=== PATIENT | female | born 1955 | race Caucasian/White ===

== ENCOUNTER 2017-04-19 02:43 | Emergency (ER) | payer MEDICARE ==
[~2017-04-19] VITALS: Ht 162.6 cm; Wt 61.2 kg
[~2017-04-19 02:43] MED LIST: ACET325; ACET325 PO; ALBU90OI INH; ALPR1; AMLO10 PO; AMLO5 PO; ASCO500 PO; BUPR150ER PO; BUPR75; BUSP10 PO; Bacid1 EACH PO; Bactrim Ds Tab1 EACH PO; Bupropion Xl150 MG PO; CALCA500CH PO; CALCAVITD PO; CARI350 PO; CEPH500 PO; CIPRO500 MG PO; CITA20 PO; CLIN150 PO; CLON2 PO; CYCL10 PO; Celexa40 MG PO; Cipro500 MG PO; DESV50 PO; DIPH50 PO; DOCU100 PO; ERGO400 PO; FAMO20 PO; FURO80 PO; GABA300 PO; HYDACE5; HYDACE5 PO; Hydrocodone-Ap1 EA23 PO; LAVAP17G PO; LEVFLO500 PO; LEVO750 PO; LEVSOD88 PO; LIPOZENE; LISI5; METR500 PO; Melatonin5 M1 PO; Mucinex600 MG PO; OXYACE5T PO; OXYC10ER PO; OXYC15ER PO; Omeprazole20 M1 PO; PROACE100 PO; PROBIOTIC WITH1 EACH PO; Prednisone20 MG PO; Pyridium100 MG PO; SERT25; SOMA250 MG PO; TRAM50 PO; Verotin-Gr Cap1 EACH PO; WARF1 PO; ZESTORETIC 20-121 EA PO; Zithromax250 MG PO; Zofran4 MG PO
== END 2017-04-19 05:50 | disposition home or self-care (01) ==
LOC: ER 02:43
DX: T21.12XA Burn of first degree of abdominal wall, initial encounter (principal); S30.810A Abrasion of lower back and pelvis, initial encounter; T31.0 Burns involving less than 10% of body surface; F17.200 Nicotine dependence, unspecified, uncomplicated; Z90.710 Acquired absence of both cervix and uterus; Z88.0 Allergy status to penicillin; Z88.6 Allergy status to analgesic agent; Z88.8 Allergy status to other drugs, medicaments and biological substances; Z88.1 Allergy status to other antibiotic agents; Z79.899 Other long term (current) drug therapy; X08.8XXA Exposure to other specified smoke, fire and flames, initial encounter
CPT/HCPCS: 99282

== ENCOUNTER → 2017-06-04 | Outpatient (CLI) | payer MEDICARE ==
[~2017-06-04] MED LIST changes: +CEFU500T30 PO
[2017-06-06 22:07] LABS: Alpha Hyrdroxyalprazolam Not Detected (NOTDET); Alpha hydroxytriazolam Not Detected (NOTDET); Alprazolam Not Detected (NOTDET); Confirm Clonazepam LC/MS Not Detected (NOTDET); Confirm Flunitrazepam LC/MS Not Detected (NOTDET); Diazepam Not Detected (NOTDET); Flurazepam Not Detected (NOTDET); Lorazepam Not Detected (NOTDET); Midazolam Not Detected (NOTDET); Temazepam Not Detected (NOTDET)
[2017-06-07 11:19] LABS: Codeine Not Detected (NOTDET); Hydrocodone Not Detected (NOTDET); Hydromorphone Not Detected (NOTDET); Morphine Not Detected (NOTDET); Norhydrocodone 99 ng/mL (NOTDET); Noroxycodone Not Detected (NOTDET)
== END | disposition home or self-care (01) ==
LOC: LAB SRC 14:10
PROVIDERS: Physician Assistant
DX: M50.30 Other cervical disc degeneration, unspecified cervical region (principal); F41.8 Other specified anxiety disorders; Z79.899 Other long term (current) drug therapy
CPT/HCPCS: G0480

== ENCOUNTER → 2017-10-07 | Outpatient (CLI) | payer MEDICARE ==
[~2017-10-07] MED LIST changes: -CEFU500T30 PO
== END | disposition home or self-care (01) ==
LOC: LAB SRC 14:27 → LAB SHORT 14:27
DX: G89.29 Other chronic pain (principal); Z79.899 Other long term (current) drug therapy
CPT/HCPCS: G0480

== ENCOUNTER 2017-11-24 20:53 | Inpatient (IN) | payer MEDICARE ==
[~2017-11-24] VITALS: Ht 167.6 cm; Wt 72.5 kg
[2017-11-24 21:10] LABS: BASOPHILS ABSOLUTE AUTO 0.05 K/mm3 (0.00-0.23); BASOPHILS PERCENT AUTO 1 % (0-2); EOSINOPHILS PERCENT AUTO 6 % (0-6); Hematocrit 37.8 % (33.0-51.0); Hemoglobin 11.9 g/dL (11.5-16.0); IMMATURE GRAN ABSOLUTE AUTO 0.07 K/mm3 (0.00-0.10); IMMATURE GRAN PERCENT AUTO 1 % (0-1); LYMPHOCYTES ABSOLUTE AUTO 2.84 K/mm3 (0.84-5.20); LYMPHOCYTES PERCENT AUTO 34 % (21-46); MONOCYTES ABSOLUTE AUTO 0.39 K/mm3 (0.16-1.47); MONOCYTES PERCENT AUTO 5 % (4-13); Mean Corpuscular HGB 29.5 pg (26.0-34.0); Mean Corpuscular HGB Conc 31.5 g/dL (31.5-36.5); Mean Corpuscular Volume 94 fL (80-100); Mean Platelet Volume 10.1 fL (9.1-12.4); NEUTROPHILS ABSOLUTE AUTO 4.58 K/mm3 (1.96-9.15); NEUTROPHILS PERCENT AUTO 54 % (41-73); Platelet Count 278 K/mm3 (150-400); RDW Coefficient Variation 12.4 % (11.7-14.2); Red Blood Cell Count 4.03 M/mm3 (3.80-5.20); White Blood Cell Count 8.43 K/mm3 (4.00-11.30)
[2017-11-24 21:24] LABS: International Normalized Ratio 0.98; Prothrombin Time Results 10.1 Sec (9.7-11.5)
[2017-11-24 21:26] LABS: Troponin I <0.015 ng/mL (0.000-0.040)
[2017-11-24 21:45] LABS: Alanine Aminotransfer (ALT/SGP 62 U/L (12-78); Albumin, Blood 3.1 g/dL (3.4-5.0); Albumin/Globulin Ratio 0.9 (0.8-1.8); Alk Phos 131 U/L (50-136); Anion Gap 9 mmol/L (6-16); Aspartate Aminotrans (AST/SGOT 57 U/L (12-37); Bilirubin, Total <0.1 mg/dL (0.1-1.0); Blood Urea Nitrogen 18 mg/dL (8-24); CO2, Blood 24 mmol/L (21-32); Calcium, Blood 8.3 mg/dL (8.5-10.1); Chloride, Blood 107 mmol/L (98-108); Globulin, Blood 3.5 g/dL (2.2-4.0); Glomerular Filtration Rate 48 (60-); Glucose, Blood 323 mg/dL (70-99); Sodium, Blood 140 mmol/L (136-145); Total Protein, Blood 6.6 g/dL (6.4-8.2)
[2017-11-25 01:52] LABS: PCO2 Arterial 37.5 mmHg (35-45); PO2 Arterial 104 mmHg (80-100); pH Blood Arterial 7.41 (7.35-7.45)
[2017-11-25 02:21] LABS: U Amphetamine Screen DETECTED; U Barbituate Screen Not Detected; U Benzodiazapine Screen Not Detected; U Buprenorphine Screen Not Detected; U Cannabinoids Screen DETECTED; U Cocaine Screen Not Detected; U Methadone Screen Not Detected; U Methamphetamine Screen DETECTED; U Opiates Screen Not Detected; U Oxycodone Screen Not Detected; U Phencyclidine Screen Not Detected; U Propoxyphene Screen Not Detected
[2017-11-25 09:28] LABS: Source, Urine Catheter
[2017-11-25 09:47] LABS: Appearance, Urine Clear (Clear); Bilirubin, Urine Neg (Neg); Blood, Urine 1+ (Neg); Color, Urine Yellow (P-Yellow); Glucose Qualitative, Urine Neg (Neg); Ketones, Urine Neg (Neg); Leukocyte Esterase, Urine 1+ (Neg); Nitrite, Urine Neg (Neg); Protein, Urine 1+ (Neg); Specific Gravity, Urine 1.015 (1.003-1.022); Urobilinogen, Urine NORM (Normal)
[2017-11-25 09:49] LABS: Bacteria Rare /hpf; Red Blood Cells, Urine 0-2 /hpf (0-2)
[2017-11-25 09:50] LABS: Squamous Epithelial Cells Rare /hpf (Few)
[2017-11-26 04:02] LABS: Hematocrit 33.3 % (33.0-51.0); Hemoglobin 10.6 g/dL (11.5-16.0); Mean Corpuscular HGB 28.7 pg (26.0-34.0); Mean Corpuscular HGB Conc 31.8 g/dL (31.5-36.5); Mean Platelet Volume 10.5 fL (9.1-12.4); Platelet Count 212 K/mm3 (150-400); RDW Coefficient Variation 12.8 % (11.7-14.2); RDW Standard Deviation 42.1 fL (35.1-46.3); Red Blood Cell Count 3.69 M/mm3 (3.80-5.20); White Blood Cell Count 7.51 K/mm3 (4.00-11.30)
[2017-11-26 04:04] LABS: Mean Corpuscular Volume 90 fL (80-100)
[2017-11-26 04:32] LABS: Albumin, Blood 2.5 g/dL (3.4-5.0); Albumin/Globulin Ratio 0.8 (0.8-1.8); Bilirubin, Total 0.4 mg/dL (0.1-1.0); Bun/Creatinine Ratio 11.3 (12.0-20.0); Calcium, Blood 7.7 mg/dL (8.5-10.1); Creatinine, Blood 1.15 mg/dL (0.40-1.00); Globulin, Blood 3.1 g/dL (2.2-4.0); Magnesium, Blood 2.1 mg/dL (1.6-2.4); Phosphorus, Blood 3.7 mg/dL (2.5-4.9); Potassium, Blood 4.2 mmol/L (3.5-5.5); Total Protein, Blood 5.6 g/dL (6.4-8.2)
[2017-11-26 04:42] LABS: PCO2 Arterial 37.4 mmHg (35-45); PO2 Arterial 61.9 mmHg (80-100); pH Blood Arterial 7.39 (7.35-7.45)
[2017-11-27 03:50] LABS: PCO2 Arterial 35.1 mmHg (35-45); PO2 Arterial 61.3 mmHg (80-100); pH Blood Arterial 7.42 (7.35-7.45)
[2017-11-27 05:18] LABS: BASOPHILS ABSOLUTE AUTO 0.05 K/mm3 (0.00-0.23); BASOPHILS PERCENT AUTO 1 % (0-2); EOSINOPHILS ABSOLUTE AUTO 0.37 K/mm3 (0.00-0.68); EOSINOPHILS PERCENT AUTO 5 % (0-6); Hematocrit 38.4 % (33.0-51.0); Hemoglobin 12.6 g/dL (11.5-16.0); IMMATURE GRAN ABSOLUTE AUTO 0.04 K/mm3 (0.00-0.10); IMMATURE GRAN PERCENT AUTO 1 % (0-1); LYMPHOCYTES ABSOLUTE AUTO 1.06 K/mm3 (0.84-5.20); LYMPHOCYTES PERCENT AUTO 15 % (21-46); MONOCYTES ABSOLUTE AUTO 0.36 K/mm3 (0.16-1.47); MONOCYTES PERCENT AUTO 5 % (4-13); Mean Corpuscular HGB 28.8 pg (26.0-34.0); Mean Corpuscular HGB Conc 32.8 g/dL (31.5-36.5); Mean Corpuscular Volume 88 fL (80-100); NEUTROPHILS ABSOLUTE AUTO 5.17 K/mm3 (1.96-9.15); NEUTROPHILS PERCENT AUTO 73 % (41-73); Platelet Count 261 K/mm3 (150-400); Red Blood Cell Count 4.38 M/mm3 (3.80-5.20); White Blood Cell Count 7.05 K/mm3 (4.00-11.30)
[2017-11-27 05:56] LABS: Bun/Creatinine Ratio 10.4 (12.0-20.0); Calcium, Blood 8.3 mg/dL (8.5-10.1); Creatinine, Blood 1.06 mg/dL (0.40-1.00); Potassium, Blood 4.1 mmol/L (3.5-5.5)
[2017-11-27] MEDS ORDERED: CEFU500T30 PO (11:26)
== END 2017-11-27 12:40 | disposition home or self-care (01) | DRG 208 ==
LOC: ER 20:53 → ICUE 11-25 00:08 → ICUW 11-25 00:08 → ICUE 11-25 00:19
PROVIDERS: Emergency Medicine; Internal Medicine; Internal Medicine Critical Care Medicine
PROC: 5A1945Z Respiratory Ventilation, 24-96 Consecutive Hours (ICD-10-PCS; principal; 2017-11-25)
DX: J96.01 Acute respiratory failure with hypoxia (principal); J69.0 Pneumonitis due to inhalation of food and vomit; G92 Toxic encephalopathy; M79.7 Fibromyalgia; M06.9 Rheumatoid arthritis, unspecified; J44.9 Chronic obstructive pulmonary disease, unspecified; I10 Essential (primary) hypertension; L93.0 Discoid lupus erythematosus; R73.9 Hyperglycemia, unspecified; F17.210 Nicotine dependence, cigarettes, uncomplicated; F15.90 Other stimulant use, unspecified, uncomplicated; F12.90 Cannabis use, unspecified, uncomplicated; F32.9 Major depressive disorder, single episode, unspecified
CPT/HCPCS: 31720; 36415; 36600; 51702; 70450; 71045; 71260; 80048; 80053; 81001; 82330; 82803; 82947; 83036; 83735; 84100; 84484; 85025; 85027; 85610; 85730; 87040; 87070; 87086; 87205; 93005; 93010; 93306; 94002; 94003; 94640; 94667; 96360; 99291-25; 99292; C9113; J0360; J0696; J1650; J2060; J3010; J3480; J7030; Q9967

== ENCOUNTER 2018-09-01 11:56 | Day surgery (SDC) | payer MEDICARE, OTHER ==
[~2018-09-01 11:56] MED LIST changes: +CEFU500T30 PO
--- NOTE | 2018-09-01 12:15 | NUR ---
09/01/[address] AWARE OF PT PREP OUTCOME. PT IN RESTROOM DOING HER SECOND ENEMA AT THIS TIME PER
== END 2018-09-01 12:31 | disposition home or self-care (01) ==
LOC: ORSCSDS 11:56
DX: Z12.11 Encounter for screening for malignant neoplasm of colon (principal); Z53.9 Procedure and treatment not carried out, unspecified reason
CPT/HCPCS: J2704; J7120

== ENCOUNTER 2018-09-10 01:30 | Inpatient (IN) | payer MEDICARE, OTHER ==
[~2018-09-10] VITALS: Ht 162.6 cm; Wt 80.3 kg
[2018-09-10 02:07] LABS: BASOPHILS ABSOLUTE AUTO 0.04 K/mm3 (0.00-0.23); BASOPHILS PERCENT AUTO 0 % (0-2); EOSINOPHILS ABSOLUTE AUTO 0.08 K/mm3 (0.00-0.68); EOSINOPHILS PERCENT AUTO 1 % (0-6); Hematocrit 31.9 % (33.0-51.0); Hemoglobin 10.2 g/dL (11.5-16.0); IMMATURE GRAN PERCENT AUTO 1 % (0-1); LYMPHOCYTES ABSOLUTE AUTO 1.51 K/mm3 (0.84-5.20); LYMPHOCYTES PERCENT AUTO 12 % (21-46); MONOCYTES ABSOLUTE AUTO 0.93 K/mm3 (0.16-1.47); MONOCYTES PERCENT AUTO 7 % (4-13); Mean Corpuscular HGB 28.5 pg (26.0-34.0); Mean Corpuscular Volume 89 fL (80-100); Mean Platelet Volume 10.3 fL (9.1-12.4); NEUTROPHILS ABSOLUTE AUTO 10.33 K/mm3 (1.96-9.15); NEUTROPHILS PERCENT AUTO 80 % (41-73); Platelet Count 271 K/mm3 (150-400); RDW Coefficient Variation 14.3 % (11.7-14.2); RDW Standard Deviation 46.1 fL (35.1-46.3); Red Blood Cell Count 3.58 M/mm3 (3.80-5.20); White Blood Cell Count 12.99 K/mm3 (4.00-11.30)
[2018-09-10 02:12] LABS: PCO2 Arterial 32.9 mmHg (35-45); PO2 Arterial 64.4 mmHg (80-100); pH Blood Arterial 7.35 (7.35-7.45)
[2018-09-10 02:21] LABS: Albumin, Blood 3.3 g/dL (3.4-5.0); Bilirubin, Total 0.4 mg/dL (0.1-1.0); Bun/Creatinine Ratio 9.1 (12.0-20.0); Creatinine, Blood 6.05 mg/dL (0.40-1.00); Globulin, Blood 3.4 g/dL (2.2-4.0); Potassium, Blood 4.4 mmol/L (3.5-5.5); Total Protein, Blood 6.7 g/dL (6.4-8.2)
[2018-09-10 02:29] LABS: Magnesium, Blood 2.5 mg/dL (1.6-2.4); Troponin I <0.015 ng/mL (0.000-0.040)
[2018-09-10 04:11] LABS: Source, Urine Clean Catch
[2018-09-10 04:18] LABS: Bilirubin, Urine Neg (Neg); Blood, Urine 2+ (Neg); Glucose Qualitative, Urine Neg (Neg); Ketones, Urine Neg (Neg); Leukocyte Esterase, Urine 1+ (Neg); Nitrite, Urine Neg (Neg); Protein, Urine 2+ (Neg); Specific Gravity, Urine 1.015 (1.003-1.022); Urobilinogen, Urine NORM (Normal)
[2018-09-10 04:19] LABS: Appearance, Urine Hazy (Clear); Color, Urine Yellow (P-Yellow)
[2018-09-10 04:24] LABS: Amorphous Mod (0-Heavy); Bacteria Mod /hpf; Red Blood Cells, Urine 0-2 /hpf (0-2); Squamous Epithelial Cells Rare /hpf (Few)
[2018-09-10 04:25] LABS: Granular Casts 0-2 /lpf (0)
[2018-09-10 04:28] LABS: U Amphetamine Screen Not Detected; U Barbituate Screen Not Detected; U Benzodiazapine Screen Not Detected; U Buprenorphine Screen DETECTED; U Cannabinoids Screen Not Detected; U Cocaine Screen Not Detected; U Methadone Screen Not Detected; U Methamphetamine Screen Not Detected; U Opiates Screen Not Detected; U Oxycodone Screen DETECTED; U Phencyclidine Screen Not Detected; U Propoxyphene Screen Not Detected
--- NOTE | 2018-09-10 06:43 | NUR ---
ASSUMING CARE AND SUMMARY NOTE. PT ARRIVED TO THE UNIT AT APPROX 0605. PT TRANSFERED VIA STRETCHER WITH ER NURSE AND BIOMASS PLANT MANAGER. PT IS ALERT AND ORIENTED AT THIS TIME. PT IS REPORTING SOB AND DIFFICULTY BREATHING. PT IS ON 2.5L O2 VIA NC WITH SPO2 IN THE MID TO HIGH 90'S. PT LUNG SOUNDS ARE WHEEZY THROUGHOUT. PT HAS GARCIA CATH IN PLACE, LARGE AMOUNT OF SEDIMENT NOTED IN GARCIA CATH TUBING. PT ASKED IF SHE HAS ANY FLANK OR LOWER BACK PAIN AND PT REPORTED THAT SHE DOES AT APPROX A 5/10. PT ALSO REPORTS GENERALIZED PAIN AND IS SHIVERY AND FIDGETY IN BED. PT TEMPERATURE IS APPROX 98.6 PT STARTED ON NS AT 200ML/HR FOR X2 BAGS. PT PROVIDED SQ HEPARIN, AND ANTIBIOTIC PIGGYBACK STARTED PER EMAR. PT BP IS IN THE 95-110'S RANGE AT THIS ITME. PT HR IS IN THE HIGH 90'S AND APPEARS SINUS. ASSUMED CARE OF PT AT THE TIME OF ARRIVAL TO THE UNIT. WILL REPORT OFF TO ONCOMING DAY SHIFT NURSE.
--- NOTE | 2018-09-10 10:13 | NUR ---
[facility] CALLED AT THIS TIME TO CONFIRM PT'S SUBOXONE PRESCRIPTION, EMPLOYEE STATES RX IS CURRENT FROM DR. SANTACRUZ AND DOSE IS SUBOXONE 8MG/2MG SL FILM BID. WILL RESUME PRESCRIPTION HERE IN HOSPITAL PER DR. DHILLON.
[2018-09-10 10:38] LABS: Bun/Creatinine Ratio 10.3 (12.0-20.0); Calcium, Blood 7.2 mg/dL (8.5-10.1); Creatinine, Blood 4.86 mg/dL (0.40-1.00); Potassium, Blood 4.5 mmol/L (3.5-5.5)
--- NOTE | 2018-09-10 11:35 | NUR ---
0730: CARE ASSUMED, ASSESSMENT COMPLETED. PT DROWSY, ROUSES EASILY TO VOICE, FOLLOWS COMMANDS, ANSWERS QUESTIONS APPROPRIATELY, FALLS BACK ASLEEP QUICKLY, SOME INTERMITTENT CONFUSION NOTED, PT STATES SHE IS "REACHING FOR THINGS THAT ARE NOT THERE," REPORTS SHE HAS BEEN CONFUSED AND FORGETFUL AT HOME FOR A FEW DAYS. VSS AT THIS TIME, MAP 70'S, HR 90'S, SPO2 >90% ON 2L/NC. NS INFUSING AT 200ML/HR PER ORDERS. PT C/O 10/10 RIGHT WRIST/HAND/FINGER PAIN, STATES SHE BELIEVES SHE MAY HAVE BEEN BITTEN BY A SPIDER. NO OBVIOUS BITE NOTED, HOWEVER THERE IS AN IV DRESSING PARTIALLY COVERING THE BACK OF HER HAND. RIGHT HAND SWOLLEN, WARM TO TOUCH, REDDENED, CMS WNL. PT ALSO C/O BILATERAL LEG PAIN/SPASMS AND NONDESCRIPT LUQ ABDOMINAL PAIN UPON PALPATION, STATES ABD PAIN IS CHRONIC, DENIES N/V. PT HAD DIARRHEA THIS MORNING, STATES SHE HAS HAD CHRONIC DIARRHEA SINCE STOPPING OXYCODONE 5 YEARS AGO. PT FALLS BACK ASLEEP DRUING CONVERSATIONS. PT ANXIOUS WHILE AWAKE, SPASM LIKE TREMORS TO ALL EXTREMS NOTED WHILE AWAKE AND ASLEEP. LS COARSE T/O, HRR. 1000: DR. DHILLON AWARE OF PT'S C/O PAIN, [facility] CONTACTED PER DR. DHILLON FOR PT'S REGULAR SUBOXONE REGIME. SUBOXONE ORDERED AT THIS TIME. PT'S SO AT BEDSIDE, ADMISSION PAPERWORK DONE. VSS. WILL ADMINISTER SUBOXONE WHEN AVAILABLE. 1130: DR. DHILLON AT BEDSIDE, MAPS <65 AT THIS TIME, NS BOLUS ADMINISTERED PER ORDERS. PT ABLE TO WAKE UP AND ANSWER QUESTIONS, THEN FALLS BACK ASLEEP. 1215: VSS AT THIS TIME, MAPS >65. LS COARSE IN BILAT BASES, HR NSR 90'S. PT REMAINS DROWSY, FALLING ASLEEP IN MID CONVERSATION. NO CHANGES NOTED IN MENTAL STATUS.
--- NOTE | 2018-09-10 13:41 | NUR ---
Frederick was alone in room and trembling. Per admit trigger, I offered prayer and emotional encouragement. She had difficulty holding conversation as she said she was in pain. Immediately informed RN. Provided prayer for healing and comfort. Frederick verbalized appreciation. Cruise Director services will remain available.
--- NOTE | 2018-09-10 14:57 | NUR ---
1400: PT SLEEPING AT THIS TIME, VSS, MAP REMAINS >65, NS INFUSING PER ORDERS. PT REMAINS DROWSY WITH PERIODS OF INTERMITTENT CONFUSION, IS AWARE THAT SHE IS CONFUSED. WHE SHE WAKES UP COMPLETELY, SHE REORIENTS EASILY. PT CALM AND COOPERATIVE WITH CARE, MUSCLE SPASMS REMAIN PRESENT WHILE AWAKE AND ASLEEP. REDNESS AND HEAT TO RIGHT HAND NO LONGER PRESENT, PAIN PERSISTS.
[2018-09-10 15:26] LABS: Albumin, Blood 2.6 g/dL (3.4-5.0); Anion Gap 10 mmol/L (6-16); Blood Urea Nitrogen 47 mg/dL (8-24); Bun/Creatinine Ratio 11.1 (12.0-20.0); CO2, Blood 17 mmol/L (21-32); Calcium, Blood 7.3 mg/dL (8.5-10.1); Chloride, Blood 113 mmol/L (98-108); Creatinine, Blood 4.25 mg/dL (0.40-1.00); Glomerular Filtration Rate 11 (60-); Glucose, Blood 123 mg/dL (70-99); Phosphorus, Blood 4.7 mg/dL (2.5-4.9); Potassium, Blood 4.5 mmol/L (3.5-5.5); Sodium, Blood 140 mmol/L (136-145)
--- NOTE | 2018-09-10 18:02 | NUR ---
1600: PT REASSESSED, LS REMAIN COARSE, RT ARRIVING SHORTLY FOR NEB TX. VSS, BP WNL. PT INSTRUCTED TO COUGH AND DEEP BREATHE, SWALLOWS SPUTUM. PT REMAINS DROWSY, INTERMITTENT CONFUSION NOTED, PT AWARE OF CONFUSION AND REORIENTS EASILY. PT FALLS BACK ASLEEP QUICKLY AFTER CARES ARE COMPLETED. 1730: PT BRUSHED TEETH AND WASHED FACE, CATH AND KATERINA CARE COMPLETED, ATTENDS CHANGED FOR SMALL BM. PT NOW SITTING UP IN BED ATTEMPTING TO EAT DINNER, REMAINS DROWSY AND IS HAVING A HARD TIME STAYING AWAKE. PT APPROPRIATE AND COOPERATIVE WHILE AWAKE. 1800: TRAY REMOVED FROM BEDSIDE TABLE PT IS SLEEPING. VSS.
--- NOTE | 2018-09-10 19:15 | NUR ---
ASSUMING CARE OF PT AT THIS TIME. PT REPORT RECEIVED AT BEDSIDE WITH OFFGOING NURSE, KEON EPPERSON. PT LAYING IN BED, SLEEPING UPON ENTERING THE ROOM. PT'S SIGNIFICANT OTHER AT BEDSIDE. VS STABLE - SEE VS FS. PT DOES NOT APPEAR TO BE IN DISTRESS AT THIS TIME. WILL REVIEW PLAN OF CARE.
--- NOTE | 2018-09-10 19:16 | NUR ---
1900: PT AWAKE, TALKING WITH SO AT THIS TIME, VSS. PT DENIES SOB AT REST, O2 AT 2.5L/NC, SPO2 >90%. LS REMAIN COARSE, OCCASIONAL LOOSE COUGH REMAINS PRESENT. REPORT GIVEN TO ONCOMING SHIFT.
--- NOTE | 2018-09-10 19:30 | NUR ---
ASSESSMENT PT CALM, QUIET, COOPERATIVE, RESPONDS TO VERBAL STIMULI, SPONT OPENS EYES, A&O X4, OCC SLOW TO RESPOND, OTHERWISE TALKS AND ANSWERS QUESTIONS APPROPRIATELY, QUICKLY FALLS BACK ASLEEP WITH DECREASED STIMULI, DROWSY, LETHARGIC. PT SLEEPING AT THIS TIME. PT STATES CHRONIC N/T ALL EXTREMETIES. PT JACOB. GENEARLIZED WEAKNESS NOTED. PT ASSISTS WITH Q2 HR TURNS. PT C/O PAIN - MEDICATED WITH PAIN MEDICATIONS PER PHYSICIAN'S ORDER / UTILIZE NONPHARM METHODS. TREMORS. LUNGS COARSE, DIMINIHSED LOWER LOBES. PT ON 2L NC. OXY SAT >95%. RR 20'S. DENIES SOB AT REST. PT C/O DYSPNEA WITH EXERTION. OCC COUGHING NOTED. PT C/O SMALL AMOUNTS OF THICK SWAIN SECRETIONS. TEMP 99.6: ROOM TEMP DECREASED, BLANKETS REMOVED, TYLENOL PRN. NSR WITH OCC PAC'S. HR 90'S. BP STABLE - SEE VS FS. STRONG PULSES. WARM, PINK SKIN. R HAND: NONPITTING EDEMA, HOT, AND TENDERNESS WITH PALPATION. PT C/O R HAND NONSITTING EDEMA, HOT, AND TENDERNESS WITH PALPATION FOR 2 YEARS. ACTIVE BT X4 QUADRANTS. ABD SOFT, NONTENDER, MILD DIST (PT STATES ABD IS NORMAL). NO N/V. NO BM. PT TOLERATING PO WATER. F/C: CLOUDLY YELLOW URINE WITH SEDIMENT. PIV X1. NS AT 75 ML/HR.
[2018-09-11 03:28] LABS: BASOPHILS ABSOLUTE AUTO 0.04 K/mm3 (0.00-0.23); BASOPHILS PERCENT AUTO 1 % (0-2); EOSINOPHILS ABSOLUTE AUTO 0.06 K/mm3 (0.00-0.68); EOSINOPHILS PERCENT AUTO 1 % (0-6); Hematocrit 27.1 % (33.0-51.0); Hemoglobin 8.6 g/dL (11.5-16.0); IMMATURE GRAN ABSOLUTE AUTO 0.02 K/mm3 (0.00-0.10); IMMATURE GRAN PERCENT AUTO 0 % (0-1); LYMPHOCYTES ABSOLUTE AUTO 1.27 K/mm3 (0.84-5.20); LYMPHOCYTES PERCENT AUTO 19 % (21-46); MONOCYTES ABSOLUTE AUTO 0.57 K/mm3 (0.16-1.47); MONOCYTES PERCENT AUTO 9 % (4-13); Mean Corpuscular HGB 29.1 pg (26.0-34.0); Mean Corpuscular HGB Conc 31.7 g/dL (31.5-36.5); Mean Platelet Volume 10.6 fL (9.1-12.4); NEUTROPHILS ABSOLUTE AUTO 4.66 K/mm3 (1.96-9.15); NEUTROPHILS PERCENT AUTO 70 % (41-73); Platelet Count 210 K/mm3 (150-400); RDW Coefficient Variation 14.6 % (11.7-14.2); RDW Standard Deviation 49.1 fL (35.1-46.3); Red Blood Cell Count 2.96 M/mm3 (3.80-5.20); White Blood Cell Count 6.62 K/mm3 (4.00-11.30)
[2018-09-11 03:29] LABS: Mean Corpuscular Volume 92 fL (80-100)
[2018-09-11 03:47] LABS: Alanine Aminotransfer (ALT/SGP 51 U/L (12-78); Albumin, Blood 2.5 g/dL (3.4-5.0); Albumin/Globulin Ratio 0.8 (0.8-1.8); Alk Phos 148 U/L (50-136); Anion Gap 9 mmol/L (6-16); Aspartate Aminotrans (AST/SGOT 42 U/L (12-37); Bilirubin, Total 0.4 mg/dL (0.1-1.0); Blood Urea Nitrogen 42 mg/dL (8-24); Bun/Creatinine Ratio 15.1 (12.0-20.0); CO2, Blood 19 mmol/L (21-32); Calcium, Blood 7.7 mg/dL (8.5-10.1); Chloride, Blood 116 mmol/L (98-108); Creatinine, Blood 2.78 mg/dL (0.40-1.00); Globulin, Blood 3.3 g/dL (2.2-4.0); Glomerular Filtration Rate 18 (60-); Glucose, Blood 104 mg/dL (70-99); Sodium, Blood 144 mmol/L (136-145); Total Protein, Blood 5.8 g/dL (6.4-8.2); Vancomycin, Random 19.4 ug/mL
--- NOTE | 2018-09-11 04:53 | NUR ---
SHIFT ASSESSMENT NO ACUTE CHANGES NOTED T/O SHIFT. PT SLEPT T/O SHIFT. PT CALM, QUIET, COOPERATIVE, RESPONDS TO VERBAL STIMULI, SPONT OPENS EYES, A&O X4, OCC SLOW TO RESPOND, OTHERWISE TALKS AND ANSWERS QUESTIOSN APPROPRIATELY, QUICKLY FALLS BACK ASLEEP WITH STIMULI, DROWSY, LETHARGIC. PT C/O CHRONIC N/T ALL EXTREMETIES. PT JACOB. GENERALIZED WEAKNESS NOTED. PT ASSISTS WITH Q2 HR TURNS. PT C/O PAIN/DISCOMFORT AT BEGINNING OF THE SHIFT. PT STATES PAIN/DISCOMFORT HAS BEEN TOLERABLE AFTER ADMINISTERING PAIN MEDICATIONS AND UTILIZING NONPHARM METHODS. TREMORS. PT STATES TREMORS ARE CHRONIC. LUNGS COARSE, DIMINISHED LOWER LOBES. TITRATE TO RA. OXY SAT 90% AND GREATER T/O SHIFT. RR 15 TO 20'S. DENIES SOB AT REST. PT C/O DYSPNEA WITH EXERTION. OCC COUGHING. PT C/O SMALL AMOUNTS OF THICK SWAIN SECRETIONS. TMAX 99.6. TEMP RESOLVED AFTER DECREASING ROOM TEMP, REMOVING BLANKETS, AND TYLENOL PRN. NSR TO ST WITH OCC PAC'S. HR 80['S TO 100'S. SLIGHTLY HYPOTENSIVE WHEN SLEEPING. OTHERWISE, VS STABLE (SEE VS FS). STRONG PULSES. WARM, PINK SKIN. R HAND: NONPITTING EDEMA, HOT, TENDER WITH PALPATION. ACTIVE BT X4 QUADRANTS. ABD SOFT, NONTENDER, MILD DIST (PT STATES ABD DIST IS NORMAL). NO N/V. NO BM. PT TOLERATING PO WATER. F/C: CLOUDY YELLOW URINE WITH SEDIMENT. PIV X2. NS AT 75 ML/HR. WILL CONT TO MONITOR PT AND WILL PROVIDE BEDSIDE REPORT TO ONCOMING NURSE THIS AM.
--- NOTE | 2018-09-11 07:30 | NUR ---
ASSUMED CARE OF PATIENT; SEE ASSESSMENT CHARTING FOR DETAILS. PATIENT SLEEPY BUT ROUSES TO VERBAL STIMULI; A/O X3. PAIN LEVEL VARIES FROM 5-9/10. PAIN IN NECK/R SHOULDER AND DOWN R ARM INTO HAND; ALSO PAIN TO HEAD. LUNGS VERY COARSE T/O WITH MOIST COUGH; PRODUCTIVE OF THICK GRAVY SPUTUM. OXYGEN AT 2L/MIN VIA NC; SEVERE EXERTIONAL DYPSNEA. IVF OF NS INFUSING AT 75ML/HR. MONITOR SHOWS NSR WITH RATE 80'S TO 90'S; OCCASIONAL ECTOPY; VSS WITH LOW GRADE FEVER OF 99.6/TEMPORAL. GARCIA TO GRAVITY AND DRAINING MOD AMOUNTS OF CLARISA COLORED URINE; REMAINS IN ARF BUT IMPROVED.
--- NOTE | 2018-09-11 09:00 | NUR ---
DR. DHILLON (HOSPITALIST) HERE; PATIENT TO CHANGE TO PCU STATUS; SEE ADDITIONAL ORDERS.
--- NOTE | 2018-09-11 09:30 | NUR ---
IVF CHANGED TO TKO STATUS.
--- NOTE | 2018-09-11 11:45 | NUR ---
SIGNIFICANT OTHER, PADMINI, ARRIVED TO VISIT PATIENT.
--- NOTE | 2018-09-11 13:50 | NUR ---
REPORT TO PCU NURSE, JANIS YUAN RN.
--- NOTE | 2018-09-11 14:00 | NUR ---
TRANSFERRED TO PCU, ROOM 1, VIA BED WITHOXYGEN AT 2L/MIN VIA NC. BELONGINGS AND CHART WITH PATIENT; ACCOMPANIED BY RUSTY 2MICHELLE.
--- NOTE | 2018-09-11 14:00 | NUR ---
RECEIVED PT FROM PROGRAM CONTROL ANALYST. PT ALERT AND ORIENTED. VS STABLE. 02 SATS REMAIN ABOVE 90% ON 2L NC. PT DENIES ANY PAIN. PT ORIENTED TO UNIT. WILL CONTINUE TO MONITOR CLOSELY.
--- NOTE | 2018-09-11 16:00 | NUR ---
PT BECOMING MORE SHORT OF BERATH. O2 SATS DECREASED TO MID 80'S. RT CALLED AND BREATHING TREATMENT PROVIDED. PT STILL SHORT OF BREATH AND ANXIOUS. DR. DHILLON CALLED AND UPDATED. IV ATIVAN GIVEN AND IV SOLUMEDROL. PT STILL ANXIOUS AND SHORT OF BREATH. PT PLACED ON BIPAP. RR 30-40. DR. DHILLON STATES HE WILL COME REASSESS PT. PT CONFUSED, BUT ABLE TO REORIENT. PT ANXIOUS AND PULLING AT BIPAP. WILL CONTINUE TO MONITOR CLOSELY.
--- NOTE | 2018-09-11 17:25 | NUR ---
ISTRATE IN TO SEE PATIENT. PATIENT'S SIGNIFICANT OTHER HERE.
[2018-09-11 17:45] LABS: BASOPHILS ABSOLUTE AUTO 0.06 K/mm3 (0.00-0.23); BASOPHILS PERCENT AUTO 1 % (0-2); EOSINOPHILS ABSOLUTE AUTO 0.06 K/mm3 (0.00-0.68); EOSINOPHILS PERCENT AUTO 1 % (0-6); Hematocrit 30.4 % (33.0-51.0); Hemoglobin 9.5 g/dL (11.5-16.0); IMMATURE GRAN ABSOLUTE AUTO 0.04 K/mm3 (0.00-0.10); IMMATURE GRAN PERCENT AUTO 0 % (0-1); LYMPHOCYTES ABSOLUTE AUTO 0.49 K/mm3 (0.84-5.20); LYMPHOCYTES PERCENT AUTO 4 % (21-46); MONOCYTES ABSOLUTE AUTO 0.49 K/mm3 (0.16-1.47); MONOCYTES PERCENT AUTO 4 % (4-13); Mean Corpuscular HGB 29.5 pg (26.0-34.0); Mean Corpuscular HGB Conc 31.3 g/dL (31.5-36.5); Mean Corpuscular Volume 94 fL (80-100); Mean Platelet Volume 11.1 fL (9.1-12.4); NEUTROPHILS PERCENT AUTO 91 % (41-73); Platelet Count 232 K/mm3 (150-400); RDW Coefficient Variation 14.6 % (11.7-14.2); RDW Standard Deviation 50.4 fL (35.1-46.3); Red Blood Cell Count 3.22 M/mm3 (3.80-5.20); White Blood Cell Count 12.84 K/mm3 (4.00-11.30)
--- NOTE | 2018-09-11 17:45 | NUR ---
PT TRANSFERRED TO ICU. BEDSIDE REPORT GIVEN TO JANIS EPPERSON. ISTRATE IN TO REASSESS PT.
--- NOTE | 2018-09-11 18:00 | NUR ---
INITIAL ASSESSMENT PATIENT ARRIVED TO UNIT AT 1725. PATIENT VERY ANXIOUS, RESTLESS. PATIENT HAS TEMP OF 99.1 DEGREES FAHRENHEIT. PATIENT STATES SHE HAS HAD PAIN IN HER LEFT LEG. S.O. STATES THAT PATIENT FELL ABOUT A WEEK AGO AND HIT HER HEAD. PATIENT IS ALERT AND ORIENTED EXCEPT TO DATE. RECEIVED REPORT THAT PATIENT COULD POSSIBLY BE GOING THROUGH WITHDRAWALS FROM NOT HAVING HER PSYCH MEDS. PATIENT'S LUNGS ARE VERY COARSE AND WHEEZY T/O. PATIENT ON BIPAP 16/8, 40% FIO2. PATIENT HAS OCCASIONAL NONPRODUCTIVE COUGH. RECEIVED REPORT THAT PATIENT HAS BEEN COUGHING UP PRIETO SPUTUM. PATIENT'S WORK OF BREATHING INREASES WITH HER ANXIETY/ RESTLESSNESS. PATIENT TACHYPNEIC. PATIENT IN ST, HR IN THE 1-TEENS. BP STABLE AT THIS TIME. PULSES STRONG. SCDS PLACED. ABDOMEN MILDLY DISTENDED, SOFT, WITH HYPOACTIVE BS. RECEIVED REPORT THAT PATIENT HAS BEEN HAVING DIARRHEA. GARCIA IN PLACE, DRAINING CLOUDY URINE WITH SEDIMENT NOTED. R ARM SWOLLEN/ RED/ HOT TO TOUCH- PATIENT STATES IT WAS LIKE THIS BEFORE COMING TO THE HOSPITAL. PATIENT HAS SCATTERED BRUISES TO BUES AND BLES. NS INFUSING AT 75 MLS/ HOUR. ANTIBIOTICS ARE INFUSING. PRN ATIVAN BEING GIVEN FOR ANXIETY. SOLUMEDROL STARTED IN PCU. PATIENT ORIENTED TO ROOM AND CALL SYSTEM. BED ALARM ON, BED LOW, CALL LIGHT IN REACH.
[2018-09-11 18:09] LABS: Albumin, Blood 2.5 g/dL (3.4-5.0); Albumin/Globulin Ratio 0.7 (0.8-1.8); Bilirubin, Total 0.3 mg/dL (0.1-1.0); Bun/Creatinine Ratio 18.1 (12.0-20.0); Calcium, Blood 7.9 mg/dL (8.5-10.1); Creatinine, Blood 1.88 mg/dL (0.40-1.00); Globulin, Blood 3.8 g/dL (2.2-4.0); Potassium, Blood 4.1 mmol/L (3.5-5.5); Total Protein, Blood 6.3 g/dL (6.4-8.2)
--- NOTE | 2018-09-11 18:40 | NUR ---
Nursing admitting pt back to ICU. Review of patient with SO and pt able to answer some questions. 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 She has been seeing a heel varnisher in [place]. He states she fell two weeks ago face down and he blieves she knocked herself out. He state he has never seen her this bad with a fair up or with drawls. Review of medication held, review of past visits and complaints. nursing updated hospitalist and head ct ordered and increased medications from with drawls. may need pharmacy consult for polypharmacy withdrawl care and dosing. unclear on some of her home meds. SO denies fani over the counter meds or marijuana oils or liquids. advised nursing pt has been complaining of left leg pain.
--- NOTE | 2018-09-11 19:15 | NUR ---
[place] of Care: Patient sleeping, rouses to loud verbal stimuli, oriented to self and month/year, confused to place and reason for admission. Currently on BiPAP 03/14/40%, O2-96-98%, denies dyspnea/SOB. Precedex gtt at 0.1mcg/kg/min, plan to place on stand-by as patient appears calm/comfortable at this time. Systolic BP 70's-80's at shift change, x1L NS bolus started per day shift RN. BP now stable following fluid bolus, systolic BP's 90's-low 100's. Moore cath patent and intact, draining clear yellow urine. Peripheral IV's x2 patent and intact. Will continue to monitor for pain, comfort, safety. Bed alarm in place.
--- NOTE | 2018-09-11 19:34 | NUR ---
SHIFT SUMMARY PATIENT RESTING QUIETLY AFTER RECEIVING PRN 0.5MG IV ATIVAN AND STARTING PRECEDEX DRIP. PATIENT'S BP HAS DECREASED TO SBP IN 70S TO 80S. DR. SULTANA HAS BEEN CONSULTED. 1 L NS BOLUS INFUSING. PRECEDEX DRIP PLACED ON STANDBY WHEN BECAME HYPOTENSIVE. PATIENT WORK OF BREATHING MUCH BETTER, SATTING 90% AND GREATER ON BIPAP SETTINGS 12/8, 40% FIO2. PATIENT SR TO ST, HR 90S TO 1-TEENS. REPORT HAS BEEN GIVEN TO ASSUMING NURSE, AZEB, WHO IS IN ROOM WITH PATIENT AT THIS TIME. DR. SULTANA LOOKING OVER PATIENT'S CHART.
[2018-09-12 03:35] LABS: BASOPHILS ABSOLUTE AUTO 0.01 K/mm3 (0.00-0.23); BASOPHILS PERCENT AUTO 0 % (0-2); EOSINOPHILS PERCENT AUTO 0 % (0-6); Hemoglobin 9.2 g/dL (11.5-16.0); IMMATURE GRAN ABSOLUTE AUTO 0.03 K/mm3 (0.00-0.10); IMMATURE GRAN PERCENT AUTO 0 % (0-1); LYMPHOCYTES ABSOLUTE AUTO 0.23 K/mm3 (0.84-5.20); LYMPHOCYTES PERCENT AUTO 3 % (21-46); MONOCYTES ABSOLUTE AUTO 0.07 K/mm3 (0.16-1.47); MONOCYTES PERCENT AUTO 1 % (4-13); Mean Corpuscular HGB 28.8 pg (26.0-34.0); Mean Corpuscular HGB Conc 31.7 g/dL (31.5-36.5); Mean Platelet Volume 10.9 fL (9.1-12.4); NEUTROPHILS ABSOLUTE AUTO 6.73 K/mm3 (1.96-9.15); NEUTROPHILS PERCENT AUTO 95 % (41-73); Platelet Count 248 K/mm3 (150-400); RDW Coefficient Variation 14.6 % (11.7-14.2); RDW Standard Deviation 48.3 fL (35.1-46.3); Red Blood Cell Count 3.19 M/mm3 (3.80-5.20); White Blood Cell Count 7.07 K/mm3 (4.00-11.30)
[2018-09-12 03:37] LABS: Mean Corpuscular Volume 91 fL (80-100)
[2018-09-12 04:02] LABS: Albumin, Blood 2.4 g/dL (3.4-5.0); Albumin/Globulin Ratio 0.6 (0.8-1.8); Bilirubin, Total 0.5 mg/dL (0.1-1.0); Bun/Creatinine Ratio 20.9 (12.0-20.0); Calcium, Blood 7.9 mg/dL (8.5-10.1); Creatinine, Blood 1.48 mg/dL (0.40-1.00); Globulin, Blood 3.9 g/dL (2.2-4.0); Potassium, Blood 4.3 mmol/L (3.5-5.5); Total Protein, Blood 6.3 g/dL (6.4-8.2)
--- NOTE | 2018-09-12 06:22 | NUR ---
Shift Summary: Slept will until approx 0330hr, and has been awake watching tv since that time. Confused to exact location and events of 09/11/18 that lead to her being transferred back to the ICU. Now remains alert and oriented. C/o rt leg and rt arm pain effectively manage with x1 prn oxycodone. Denies dyspnea or SOB, has been off BiPAP mask since waking, O2-96-100% on 2L/NC. Moore cath remains patent and intact, draining dark yellow clear urine. Call light in reach, makes needs known. Will continue to monitor until report to day shift RN.
--- NOTE | 2018-09-12 08:06 | NUR ---
INITIAL ASSESSMENT PATIENT WATCHING TV QUIETLY UPON ENTERING ROOM. PATIENT CALM, COOPERATIVE, PLEASANT. PATIENT ALERT AND ORIENTED X 4, AFEBRILE. PATIENT WEAK BUT ABLE TO MOVE ALL EXTREMITIES. PATIENT STATES SHE HAS N/T IN BLES BUT THAT IT IS "NORMAL FOR HER". PATIENT COMPLAINS OF PAIN IN SHOULDERS AND LEFT ARM AND HAND. PATIENT GIVEN PRN PAIN MEDICATION. PATIENT SATTING 90% AND BETTER ON 2 L NC. PATIENT HAD A BREATHING TREATMENT THIS AM. EXPIRATORY WHEEZES NOTED IN MERT AND RLL LUNG LOBES. LLL AND RLL DIMINISHED. CRACKLES NOTED IN RUL. PATIENT HAS MOIST COUGH. PATIENT BECOMES DYSPNEIC WITH LITTLE EXERTION. PATIENT IN SR TO ST, HR 90S TO LOW 100S. BP STABLE. BLE PULSES 1+, RADIAL PULSES 2+ IN STRENGTH. SCDS IN PLACE. ABDOMEN MILDLY DISTENDED, SOFT, WITH NORMOACTIVE BOWEL SOUNDS. PATIENT'S LAST BM YESTERDAY. GARCIA DRAINING YELLOW COLORED URINE. SCATTERED BRUISES NOTED. R ARM SWOLLEN, RED, HOT TO TOUCH. NS INFUSING AT 75 MLS/ HOUR. PRECEDEX ON SB. BED LOW, CALL LIGHT IN REACH. WILL CONTINUE TO MONITOR PATIENT FREQUENTLY THROUGHOUT SHIFT.
--- NOTE | 2018-09-12 08:57 | NUR ---
INFORMED DR. SULTANA THAT PATIENT'S BLOOD SUGAR ELEVATED THIS AM. INFORMED THAT PATIENT IS EATING AND DRINKING WELL. INFORMED THAT PATIENT HAS NOT NEEDED TO BE ON PRECEDEX. INFORMED THAT PATIENT WAS STARTED BACK ON HOME CELEXA YESTERDAY. INFORMED THAT LUNGS ARE CRACKLY/ WHEEZY, 3.5 L FLUID OVERLOADED OVER LAST 24 HOURS, BUT THAT SHE HAS BEEN SATTING 90% AND GREATER ON 2 L NC. PATIENT OVERALL DOING MUCH BETTER THAN WHEN CAME TO UNIT LAST NIGHT.
--- NOTE | 2018-09-12 12:12 | NUR ---
PATIENT RESTING QUIETLY IN BED, WATCHING TV. AFEBRILE. PATIENT GIVEN PRN PAIN MEDICATION FOR COMPLAINT OF PAIN IN SHOULDERS AND RIGHT ARM/ HAND. PATIENT SATTING 90% AND GREATER ON RA AT THIS TIME. PATIENT REMAINS SR TO ST, HR 90S TO LOW 100S. SBP IN THE 160S. SPOKE TO DR. SULTANA AND HOME DOSE OF NORVASC RESTARTED. DOSE GIVEN TO PATIENT. URINE CULTURE CAME BACK POSITIVE FOR ENTEROCOCCUS FAECALIS- DR. SULTANA INFORMED AND ORDERED OT DOSE OF IV VANCOMYCIN. BLOOD SUGAR OF 173. NO OTHER CHANGES TO NOTE ON AT THIS TIME. WILL CONTINUE TO MONITOR.
--- NOTE | 2018-09-12 12:27 | NUR ---
NO ACUTE CHANGES TO NOTE ON AT THIS TIME. PATIENT WILL BE TRANSFERRED TO PCU ROOM 14. PATIENT'S SIGNIFICANT OTHER HAS BEEN NOTIFIED. REPORT HAS BEEN GIVEN TO ASSUMING NURSE, MARILYN CHEN.
--- NOTE | 2018-09-12 13:34 | NUR ---
PATIENT TRANSFERRED TO PCU 14.
--- NOTE | 2018-09-12 15:06 | NUR ---
PT WAS BROUGHT TO PCU FROM ICU, REPORT FROM JANIS RN, WENT RETURNED TO THE FLOOR ASSEMBLER SURGICAL GARMENT ASKED ME TO GO TO THE ROOM URGENTLY, ANOTHER RN WAS GIVING HER ATIVAN, SHE IS OUT OF CONTROL, ON BIPAP AT THIS TIME, SATS ARE IN THE 90'S RESP RATE IN THE 30'S, SHE IS FLAILING IN BED, B/P IS VERY HIGH, SHE WAS GIVEN ATIVAN AND HYDRALAZINE WITH NO RELIEF. DR. SULTANA WAS CALLED, HE CHANGED SOME ORDERS, AND SAID TO TURN THE O2 DOWN, HE WANTS HER 88-90%, O2 WAS TURNED DOWN FROM 15 LITERS TO 5, SHE TOLERATED THIS FOR A BIT, THEN SATS STARTED DROPPING TO THE LOW 80'S, SHE WAS TURNED UP TO 10 AND TAKEN BACK TO ICU. DR. SULTANA IN ROOM WHEN WE GOT HERE THERE.
--- NOTE | 2018-09-12 15:30 | NUR ---
INITIAL ASSESSMENT PATIENT TRANSFERRED BACK TO ICU FROM PCU FOR INCREASED ANXIETY AND RESPIRATORY DISTRESS. PATIENT ARRIVED AT 1500. PATIENT VERY ANXIOUS AND AGITATED. PATIENT RESTLESS, TRYING TO DISROBE, GRABBING AT EQUIPMENT. PATIENT CONFUSED BUT RESPONSIVE TO VERBAL STIMULI. PATIENT WILL ANSWER "OKAY" BACK TO STAFF WHEN TRYING TO HELP RELAX BUT IS NOT REALLY LISTENING. PUPILS 8+ AND REACTING SLUGGISHLY TO LIGHT. PATIENT AFEBRILE. SKIN IS DIAPHORETIC, PALE, AND COOL. LIPS AND SKIN APPEARS CYANOTIC. PATIENT ON BIPAP 12/8, 45%. LUNG SOUNDS CLEAR THROUGHOUT. PATIENT BREATHING IS LABORED, SHE IS GRUNTING, TACHYPNEIC. PATIENT IN ST, HR IN THE 130S. PATIENT HYPERTENSIVE, SBP 214. GARCIA DRAINING YELLOW URINE. WILL CONTINUE TO MONITOR.
--- NOTE | 2018-09-12 19:00 | NUR ---
ASSUMED CARE ASSUMED CARE OF PATIENT. REMAINS ON BIPAP 03/14, BUR 14, FIO2 35%. RESP RATE 50s. RESPIRATIONS ARE SLIGHTLY LABORED AND OCCASIONAL GRUNTING NOTED. MOANS FREQUENTLY. OPENS EYES TO STIMULI. SQUEEZES HANDS TO COMMAND. DEEPAK, 3MM, SLUGGISH. BILATERAL SOFT WRIST RESTRAINTS ON TO KEEP PT FROM PULLING BIPAP OFF. SEDATED WITH PRECEDEX AT 0.7MCG/KG/HR. MONITOR SHOWS SR, RATE 70s. SBP 90s. GARCIA PATENT AND DRAINING CLOUDY YELLOW URINE. SEE SHIFT ASSESSMENT FOR FULL ASSESSMENT.
--- NOTE | 2018-09-12 19:17 | NUR ---
SHIFT SUMMARY PATIENT ARRIVED TO UNIT AT 1500 IN RESPIRATORY DISTRESS, APPEARING TO BE HAVING SYMPTOMS CONCURRENT WITH AN ANXIETY ATTACK- VERY ANXIOUS, RESTLESS, DISROBING, GRABBING AT MEDICAL EQUIPMENT. PATIENT RESPONDING TO VERBAL STIMULI BUT NOT SEEMING TO LISTEN. EYES APPEARED GLASSY, PUPILS 8+ AND SLUGGISH. PATIENT MOANING AND GRUNTING. PATIENT SKIN PALE, CYANOTIC, COOL, DIAPHORETIC. PATIENT ON BIPAP SETTINGS OF 12/8, 45% FIO2. PATIENT TACHYPNEIC, BREATHING LABORED. PATIENT HAS MOIST COUGH. HR 130S, SBP 200S. PATIENT GIVEN PRN ATIVAN FOR ANXIETY. PATIENT GIVEN PRN LABETALOL AND NITRO PASTE FOR ELEVATED BP. PATIENT ALSO GIVEN OT LASIX. PATIENT STARTED ON PRN FENTANYL FOR PAIN. FENTANYL GIVEN OT AND HELPED RESTLESS QUITE A LOT. PRECEDEX DRIP ALSO INITIATED PRN ATIVAN DID NOT SEEM TO HELP ANXIETY AT ALL. BP DECREASED SHORT TIME AFTER PRN LABETALOL AND NITRO PASTE GIVEN- SBP TO THE 80S AND 90S- NITRO PASTE REMOVED. PATIENT IS NOW RESTING QUIETLY IN BED. NO SIGNS OF PAIN. WORK OF BREATHING IS MUCH IMPROVED, HOWEVER PATIENT CONTINUES TO BE TACHYPNEIC- RR 40S. BIPAP SETTINGS 12/8, 40% FIO2. HR 70S TO LOW 100S. BP STABLE. GI WNL- PATIENT DID NOT HAVE BM THIS SHIFT. PATIENT HAS REMAINED NPO IS ASPIRATION RISK AT THIS TIME. GARCIA DRAINING YELLOW, CLOUDY URINE WITH SEDIMENT NOTED. PRECEDEX INFUSING AT 0.7 MCG/ KG/ HOUR, NS TKO. PATIENT HAS NO SIGNS OF PAIN AT THIS TIME. BED LOW, CALL LIGHT IN REACH. REPORT HAS BEEN GIVEN TO ASSUMING NURSE, HERVE OCAMPO.
--- NOTE | 2018-09-12 20:00 | NUR ---
TACHYPNEA PT WITH CONTINUED TACHYPNEA, RATE 50s. PT IS AGITATED AND RESTLESS. ATTEMPTED TRIAL OFF OF BIPAP, BUT RESPIRATIONS INCREASINGLY LABORED AFTER 2-[address] SULTANA NOTIFIED OF TACHYPNEA- PLAN IS TO KEEP MONITORING FOR NOW. ALSO NOTIFIED OF CURRENT VS AND SEDATION NEEDS. NEW ORDERS RECEIVED AT THIS TIME.
--- NOTE | 2018-09-12 22:10 | NUR ---
AGITATION/BP PT'S SIGNIFICANT OTHER AT BEDSIDE FOR APPROXIMATELY 45 MINUTES. WHEN S.O. LEFT, PT BECAME AGITATED AND RESTLESS, ATTEMPTING TO SIT UP IN BED AND REACHING FOR BIPAP MASK. BP 191/89. PUPILS ARE APPROXIMATELY 7-8MM AND SLUGGISH. MEDICATED WITH HALDOL 3MG IV. U TOX SENT TO LAB.
[2018-09-12 23:46] LABS: U Amphetamine Screen Not Detected; U Barbituate Screen Not Detected; U Benzodiazapine Screen DETECTED; U Buprenorphine Screen DETECTED; U Cannabinoids Screen Not Detected; U Cocaine Screen Not Detected; U Methadone Screen Not Detected; U Methamphetamine Screen Not Detected; U Opiates Screen Not Detected; U Oxycodone Screen DETECTED; U Phencyclidine Screen Not Detected; U Propoxyphene Screen Not Detected
--- NOTE | 2018-09-13 02:46 | NUR ---
HYPERTENSION/AGITATION PT ATTEMPTING TO SIT UP IN BED. THROWING LEGS OVER SIDE OF BED. MOANING. SQUEEZES HANDS TO COMMAND. FOLLOWS SOME SIMPLE DIRECTIONS. PUPILS 7-8MM, SLUGGISH. BP 197/107 AT THIS TIME. MONITOR SHOWS ST, RATE 100-105. RR 40s. O2 SATS 89-90%. FENTANYL 50MCG IV GIVEN AT THIS TIME AND PRECEDEX INCREASED TO 1MCG/KG/HR.
[2018-09-13 03:09] LABS: BASOPHILS ABSOLUTE AUTO 0.01 K/mm3 (0.00-0.23); BASOPHILS PERCENT AUTO 0 % (0-2); EOSINOPHILS PERCENT AUTO 0 % (0-6); Hematocrit 33.9 % (33.0-51.0); Hemoglobin 10.5 g/dL (11.5-16.0); IMMATURE GRAN ABSOLUTE AUTO 0.13 K/mm3 (0.00-0.10); IMMATURE GRAN PERCENT AUTO 1 % (0-1); LYMPHOCYTES ABSOLUTE AUTO 0.98 K/mm3 (0.84-5.20); LYMPHOCYTES PERCENT AUTO 6 % (21-46); MONOCYTES ABSOLUTE AUTO 0.53 K/mm3 (0.16-1.47); MONOCYTES PERCENT AUTO 3 % (4-13); Mean Corpuscular HGB 28.4 pg (26.0-34.0); Mean Corpuscular Volume 92 fL (80-100); Mean Platelet Volume 10.6 fL (9.1-12.4); NEUTROPHILS ABSOLUTE AUTO 15.39 K/mm3 (1.96-9.15); NEUTROPHILS PERCENT AUTO 90 % (41-73); Platelet Count 371 K/mm3 (150-400); RDW Coefficient Variation 14.6 % (11.7-14.2); RDW Standard Deviation 49.4 fL (35.1-46.3); White Blood Cell Count 17.04 K/mm3 (4.00-11.30)
--- NOTE | 2018-09-13 03:12 | NUR ---
HYPERTENSION/CALL TO LUNGS COARSE T/O WITH EXP WHEEZES. RR 50s. BP 221/111. MONITOR SHOWS ST, RATE 120s. LABETALOL 10MG IV GIVEN. DR. SULTANA NOTIFIED OF EVENTS- NEW ORDERS RECEIVED FOR LASIX AND NTG PASTE. FIO2 NOW 40%.
[2018-09-13 03:16] LABS: PCO2 Arterial 37.8 mmHg (35-45); PO2 Arterial 71.6 mmHg (80-100); pH Blood Arterial 7.27 (7.35-7.45)
[2018-09-13 03:31] LABS: Albumin, Blood 2.6 g/dL (3.4-5.0); Anion Gap 9 mmol/L (6-16); Blood Urea Nitrogen 39 mg/dL (8-24); Bun/Creatinine Ratio 27.5 (12.0-20.0); CO2, Blood 19 mmol/L (21-32); Calcium, Blood 8.6 mg/dL (8.5-10.1); Chloride, Blood 116 mmol/L (98-108); Creatinine, Blood 1.42 mg/dL (0.40-1.00); Glomerular Filtration Rate 39 (60-); Glucose, Blood 156 mg/dL (70-99); Phosphorus, Blood 3.6 mg/dL (2.5-4.9); Potassium, Blood 4.3 mmol/L (3.5-5.5); Sodium, Blood 144 mmol/L (136-145)
--- NOTE | 2018-09-13 06:16 | NUR ---
SHIFT SUMMARY REMAINED ON BIPAP T/O SHIFT- SETTINGS NOW 16/, BUR 14, FIO2 40%. RR 30-50s. O2 SATS STABLE. AFEBRILE. MONITOR SHOWS NSR, RATE 70-90s T/O MOST OF SHIFT. MEDICATED WITH LABETALOL 10MG IV X [address], RATE 120s AND BRIAN 220/110. BP STABLE OTHERWISE. LASIX 40MG IV GIVEN X 1 DOSE. NPO. GARCIA PATENT AND DRAINING CLOUDY YELLOW URINE. PUPILS VACILLATING BETWEEN 2MM AND 7-8MM, SLUGGISH. FOLLOWS SIMPLE COMMANDS AT TIMES. MOANS FREQUENTLY. MEDICATED WITH ATIVAN 2MG IV X 2 DOSES, FENTANYL 50MCG IV X 2 DOSES, AND HALDOL 3MG IV X 1. PRECEDEX INFUSED BETWEEN 0.7-1MCG/KG/HR- NOW INFUSING AT 1MCG/KG/HR. BILATERAL SOFT WRIST RESTRAINTS REMAIN IN PLACE- PT DOES REACH FOR BIPAP WHEN RESTRAINTS OFF. PAS TO BLE. WILL REPORT TO DAY SHIFT RN WHEN AVAILABLE.
--- NOTE | 2018-09-13 09:00 | NUR ---
INITIAL ASSESSMENT PATIENT SLEEPING UPON ENTERING ROOM. PATIENT RESPONDS TO VERBAL STIMULI. PATIENT ORIENTED TO SELF, THAT SHE IS IN [place]. PATIENT DID NOT REMEMBER THAT SHE WAS IN THE HOSPITAL BUT ONCE INFORMED SHE KNEW SHE WAS HERE WITH "BREATHING PROBLEMS". PATIENT CALM, COOPERATIVE, WITH FLAT AFFECT. PATIENT FOLLOWING SIMPLE COMMANDS. PATIENT WEAK BUT ABLE TO MOVE ALL EXTREMITIES. PATIENT AFEBRILE. PATIENT HAS NO SIGNS OF PAIN AT THIS TIME. CNVI OF 0/5. PATIENT ON BIPAP, SETTINGS 16/12, 35%. LUNGS COARSE AND WHEEZY T/O. PATIENT HAS MOIST COUGH AND BECOMES DYSPNEIC WITH EXERTION. PATIENT IN SR, HR 70S TO 80S. BP STABLE. SCDS IN PLACE. ABDOMEN MILDLY DISTENDED, SOFT, NONTENDER, WITH NORMOACTIVE BS. PATIENT'S LAST BM ON THE . GARCIA DRAINING ADEQUATE AMOUNT OF YELLOW COLORED URINE WITH SEDIMENT NOTED. R ARM SLIGHTLY SWOLLEN AND REDDENED- RECEIVED REPORT IN PAST THAT ARM LIKE THIS BEFORE ADMISSION TO HOSPITAL. PATIENT HAS SCATTERED BRUISES T/O BODY. PRECEDEX INFUSING AT 1.0 MCG/ KG/ HOUR, NS TKO. BED LOW, CALL LIGHT IN REACH. PATIENT REORIENTED TO ROOM AND CALL SYSTEM. WILL CONTINUE TO MONITOR PATIENT FREQUENTLY THROUGHOUT SHIFT.
--- NOTE | 2018-09-13 10:22 | NUR ---
echocardiogram completed
--- NOTE | 2018-09-13 12:45 | NUR ---
PATIENT RESTING QUIETLY IN BED. PRECEDEX DECREASED TO 0.5 MCG/ KG/ HOUR. PATIENT ORIENTED TO SELF, PERSON, PLACE, FAMILY AND FOLLOWING DIRECTIONS. PATIENT ALSO KNEW YEAR BUT NOT MONTH. PATIENT REMAINS CALM, COOPERATIVE, WITH FLAT AFFECT. PATIENT HAS NO SIGNS OF PAIN AT THIS TIME. PATIENT AFEBRILE. PATIENT SATTING 90% ON 2 L NC. LUNGS REMAIN COARSE AND WHEEZY T/O. PATIENT IN SR, HR IN THE 90S. BP STABLE. BLOOD SUGAR OF 156- NO COVERAGE INDICATED. PATIENT ABLE TO DRINK AND TAKE PILL WITH NO PROBLEMS. NO OTHER ACUTE CHANGES TO NOTE ON AT THIS TIME. WILL CONTINUE TO MONITOR.
--- NOTE | 2018-09-13 16:45 | NUR ---
PATIENT RESTING QUIETLY IN BED UPON ENTERING ROOM. PRECEDEX REMAINS ON STANDBY. NEURO UNCHANGED FROM PREVIOUS, MIDDAY ASSESSMENT. WHEN ASKED, PATIENT COMPLAINS OF PAIN IN RIGHT SHOULDER AND RIGHT ARM AND STATES THAT THIS IS WHERE SHE NORMALLY HAS PAIN. PRN OXYCODONE GIVEN. PATIENT AFEBRILE. PATIENT SATTING 94% ON RA. CRACKLES NOTED IN RLL. RUL CLEAR. FINE EXPIRATORY CRACKLES NOTED IN LLL. OCCASIONAL EXPIRATORY WHEEZE NOTED IN MERT. PATIENT IN SR, HR IN THE 90S. BP STABLE. NO OTHER ACUTE CHANGES TO NOTE ON AT THIS TIME. WILL CONTINUE TO MONITOR.
--- NOTE | 2018-09-13 18:48 | NUR ---
SHIFT SUMMARY PATIENT REMAINED MOSTLY CALM AND COOPERATIVE, WITH FLAT AFFECT. PATIENT BECAME SLIGHTLY ANXIOUS A FEW TIMES DUE TO DYSPNEA WITH EXERTION. PATIENT WAS ABLE TO SLOW BREATHING AND CALM ANXIETY WITH NURSE COACHING SLOW/ DEEP BREATHS. PATIENT DID NOT NEED ANY PRN ATIVAN AND PRECEDEX WAS ABLE TO BE TITRATED TO SB AT 1400. PATIENT ALERT AND ORIENTED EXCEPT TO MONTH AND DAY. PATIENT HAD ONE COMPLAINT OF PAIN IN RIGHT SHOULDER AND ARM. PATIENT RECEIVED PRN PO OXYCODONE AND REPORTED RELIEF SHORT TIME AFTER ADMINISTRATION. PATIENT REMAINED AFEBRILE. PATIENT BEGAN SHIFT ON BIPAP 16/, 35% FIO2. PATIENT TITRATED DOWN TO 4 L NC SHORTLY AFTER SHIFT BEGAN AND IS ENDING SHIFT SATTING 96% ON RA. PATIENT'S COUGH SEEMS LESS MOIST THAN WAS AT BEGINNING OF SHIFT. COUGH STILL REMAINS NONPRODUCTIVE. LUNGS STILL WHEEZY AND CRACKLY TO AUSCULTATION. PATIENT HAS REMAINED IN SR, HR 70S TO 90S. BP HAS REMAINED STABLE. GI WNL. LAST BM YESTERDAY. PATIENT NPO THIS MORNING BUT WOKE UP ENOUGH IN AFTERNOON, SOME TIME AFTER PRECEDEX DRIP PLACED ON SB, TO DRINK AND EAT CARDIAC DIET WITH NO DIFFICULTY. GARCIA DRAINED 1500 CC YELLOW COLORED URINE WITH SEDIMENT NOTED. PATIENT RECEIVED 40 MG IV LASIX THIS SHIFT. NO CHANGE TO SKIN. NS INFUSING TKO. ECHO PERFORMED SHOWING EF OF 55-60%. CADEN CONSULTED ON PATIENT TODAY FOR HIGH TROPONINS. CADEN STATED THAT PATIENT WILL POSSIBLY GO TO ROUGH ROUNDER MACHINE TOMORROW. BLOOD SUGARS 154 AND 156. PATIENT RESTING QUIETLY IN BED WITH NO COMPLAINTS AT THIS TIME. BED LOW, CALL LIGHT IN REACH. REPORT WILL BE GIVEN TO ASSUMING ANODE ADJUSTER NURSE SHORTLY.
--- NOTE | 2018-09-13 19:40 | NUR ---
[facility]; Patient sleeping, easily roused via verbal stimuli, oriented to self, place, event. Slightly anxious at shift change, prn ativan given by day shift Rn with good effect, now appears calm/comfortable. Denies pain, discomfort, SOB, or dyspnea at this time. VSS, O2-95% on RA, slight SOB noted with exertion. PICC line to ZHENG patent and intact. Moore cath patent and intact, draining light yellow clear urine. Plan to keep patient on RA at this time, will use BiPAP mask if indicated. Call light in reach, makes needs known. Will continue to monitor for pain, comfort, safety.
[2018-09-14 04:16] LABS: BASOPHILS PERCENT AUTO 0 % (0-2); EOSINOPHILS PERCENT AUTO 0 % (0-6); Hematocrit 28.2 % (33.0-51.0); Hemoglobin 9.1 g/dL (11.5-16.0); IMMATURE GRAN PERCENT AUTO 1 % (0-1); LYMPHOCYTES ABSOLUTE AUTO 0.43 K/mm3 (0.84-5.20); LYMPHOCYTES PERCENT AUTO 6 % (21-46); MONOCYTES PERCENT AUTO 3 % (4-13); Mean Corpuscular HGB 28.9 pg (26.0-34.0); Mean Corpuscular HGB Conc 32.3 g/dL (31.5-36.5); Mean Corpuscular Volume 90 fL (80-100); Mean Platelet Volume 10.8 fL (9.1-12.4); NEUTROPHILS ABSOLUTE AUTO 7.06 K/mm3 (1.96-9.15); NEUTROPHILS PERCENT AUTO 91 % (41-73); NRBC ABSOLUTE 0.02 K/mm3 (0.00-0.02); NRBC Auto 0.3 /100 WBC (0.0-0.2); Platelet Count 336 K/mm3 (150-400); RDW Coefficient Variation 14.7 % (11.7-14.2); Red Blood Cell Count 3.15 M/mm3 (3.80-5.20); White Blood Cell Count 7.79 K/mm3 (4.00-11.30)
[2018-09-14 04:37] LABS: Albumin, Blood 2.5 g/dL (3.4-5.0); Anion Gap 11 mmol/L (6-16); Blood Urea Nitrogen 52 mg/dL (8-24); Bun/Creatinine Ratio 35.9 (12.0-20.0); CO2, Blood 20 mmol/L (21-32); Calcium, Blood 8.1 mg/dL (8.5-10.1); Chloride, Blood 116 mmol/L (98-108); Creatinine, Blood 1.45 mg/dL (0.40-1.00); Glomerular Filtration Rate 38 (60-); Glucose, Blood 162 mg/dL (70-99); Phosphorus, Blood 3.4 mg/dL (2.5-4.9); Potassium, Blood 3.4 mmol/L (3.5-5.5); Sodium, Blood 147 mmol/L (136-145)
--- NOTE | 2018-09-14 06:11 | NUR ---
Shift Summary: Patient slept well throughout shift. Denied pain, discomfort, SOB, and dyspnea throughout most of shift. Anxious this morning when thinking of upcoming cardiac cath lab radiology technologist procedure scheduled for today, also slightly SOB while anxious. Re-assurance from staff and prn Ativan effective to calm patient. VSS throughout shift, O2-94-96% on RA. PICC to ZHENG patent and intact. Moore cath patent and intact, draining clear yellow urine. Call placed to Dr. Slaughter this morning r/t potassium of 3.4. Received order for KCL 40meq IV x1. Calm and comfortable at this time. Will continue to monitor until report to day shift RN.
--- NOTE | 2018-09-14 08:00 | NUR ---
ASSUMED CARE ASSUMED CARE OF PT AT 0700. REPORT RECEIVED FROM ZEENAT BOWIE. PT SLEEPING, AROUSES EASILY TO VERBAL STIMULUS. PT ORIENTED TO SELF, FAMILY, SURROUNDINGS, FOLLOWING DIRECTIONS. PT STATES SHE IS IN THE HOSPITAL AND THINKS IT IS "BECAUSE OF MY BREATHING". SHE ALSO STATES SHE THINKS THIS IS "ALL BECAUSE OF SUBOXONE". SHE STATES SHE WAS FEELING GREAT UNDER THE CARE OF DR. GROSSMAN AND THEN "THEY" DECIDED TO CHANGE HER MEDICATIONS AND PUT HER ON SUBOXONE AND SHE HAS BEEN FEELING TERRIBLE EVER SINCE. PT APPEARS ANXIOUS AND SHORT OF BREATH. MONITOR SHOWS SINUS TACH WITH HR LOW 100'S, SBP 140'S, SPO2 MID 90'S ON ROOM AIR. LUNG SOUNDS COARSE AND WHEEZY T/O. PT DENIES ANY NAUSEA OR PAIN, TOLERATING PO INTAKE WELL. PT HAS GARCIA CATH IN PLACE DRAINING DARK YELLOW URINE TO GRAVITY. PT TO GET LASIX THIS AM. PT'S AT BEDSIDE. WILL CONTINUE TO MONITOR PT CLOSELY.
--- NOTE | 2018-09-14 11:00 | NUR ---
DR. RD SULTANA ROUNDED ON PT. DISCUSSED PLAN OF CARE WITH PT AND SIGNIFICANT OTHER AT BEDSIDE. PLAN FOR PT TO CHANGE TO PCU STATUS. NO ADDITIONAL ORDERS RECEIVED AT THIS TIME.
--- NOTE | 2018-09-14 11:15 | NUR ---
PT/OT PT/OT WORKED WITH PT, GOT HER UP TO CHAIR WITH WALKER AND MINIMAL ASSIST. PT BACK TO BED WITH THIS RN AT PT'S REQUEST.
--- NOTE | 2018-09-14 12:05 | NUR ---
Pt up in chair, slightyl labored breathing with wheezes. Pt opening a present from family it is an yaima She states she collects them since her son a few years ago in a car accident. She is tearfull and states anexiety is worse. Review startegies and medications with nursing. spoke with pt offered viualization or art to give her something to do. She is open to drawing so supplies given will check back. Asked chaplian to see her about her grief.
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
--- NOTE | 2018-09-14 16:48 | NUR ---
1500: CARE ASSUMED, PT SLEEPING AT THIS TIME, SPO2 >90% ON RA, VSS. 1630: PASTORAL CARE IN TO SPEAK WITH PT, PT BECAME TEARFUL AND ANXIOUS, ATIVAN ADMINISTERED PER ORDERS. OXYCODONE ADMINISTERED FOR 7/10 RIGHT SHOULDER AND NECK PAIN, PT TOLERATED PO MEDICATIONS WELL. PT NOW RESTING, DENIES NEEDS, REMAINS TEARFUL BUT IS RELUCTANT TO TALK ABOUT IT. VSS, SPO2 92% ON RA.
--- NOTE | 2018-09-14 18:38 | NUR ---
1730: PT SITTING UP IN BED TALKING WITH SO, IS CALM AT THIS TIME, NO CRYING NOTED, PT APPEARS TO BE HAVING A PLEASANT CONVERSATION. DINNER TRAY GIVEN. VSS. 1830: PT TOLERATED DINNER TRAY WELL, DENIES NAUSEA OR CHEST PAIN, SOB MINIMAL AT THIS TIME. SPO2 94% ON RA, HR 80'S-90'S NSR. PT SITTING IN BED TALKING WITH SON AND SO, DENIES NEEDS. REPORT TO ONCOMING SHIFT.
--- NOTE | 2018-09-14 19:13 | NUR ---
Review of pt with chaplian. follow up visit pt sleeping breathing less labored. Will continue to present non pharmacological options for pain and , anexiety and dyspnea. will suggest persistant pain class before discharge. She is to overwhelmed right now.
--- NOTE | 2018-09-14 19:15 | NUR ---
ASSUME CARE: REPORT RECIEVED FROM OFF GOING RN KEON. VISITS WITH FAMILY IN ROOM C/O ANXIETY MEDICATED WITH ATIVAN 1MG IV. MONITOR INTACT SHOWING SINUS RHYTHM HEART RATE 80'S, LUNG SOUNDS CLEAR UPPER LOBES WITH DECREASED SOUNDS IN THE BASES. RESPIRATIONS REGULAR AND EASY AT REST. [id number]% ABDOMEN SOFT WITH BOWEL SOUNDS FOUR QUADS. GARCIA PATENT DRAINING CLARISA URINE/ REPOSITIONS SELF IN BED. PEDAL PULSES PRESENT NO EDEMA NOTED. CONTINUE TO MONITOR AND REPORT CHANGE IN PATIENT CONDITION.
--- NOTE | 2018-09-14 23:25 | NUR ---
REQUEST BIG GLASS OF SODA. ALSO CO ANXIETY AND "SOMETHING FOR PAIN" MEDICATED WITH ATIVAN 1 MG IV AND ROXICODONE 5MG. VISITS WITH FAMILY AT BEDSIDE. NPO STATUS EXPLAINED FOR MIDNIGHT. UNDERSTANDING VERBALIZED. SODA OBTAINED. TOLERATES WELL. CONTINUE TO MONTIOR AND REPORT CHANGE IN PATIENT CODITION.
[2018-09-15 04:18] LABS: BASOPHILS ABSOLUTE AUTO 0.01 K/mm3 (0.00-0.23); BASOPHILS PERCENT AUTO 0 % (0-2); EOSINOPHILS PERCENT AUTO 0 % (0-6); Hematocrit 29.2 % (33.0-51.0); Hemoglobin 9.5 g/dL (11.5-16.0); IMMATURE GRAN PERCENT AUTO 3 % (0-1); LYMPHOCYTES PERCENT AUTO 9 % (21-46); MONOCYTES ABSOLUTE AUTO 0.67 K/mm3 (0.16-1.47); MONOCYTES PERCENT AUTO 7 % (4-13); Mean Corpuscular HGB 28.6 pg (26.0-34.0); Mean Corpuscular HGB Conc 32.5 g/dL (31.5-36.5); Mean Corpuscular Volume 88 fL (80-100); Mean Platelet Volume 10.8 fL (9.1-12.4); NEUTROPHILS ABSOLUTE AUTO 8.18 K/mm3 (1.96-9.15); NEUTROPHILS PERCENT AUTO 81 % (41-73); NRBC ABSOLUTE 0.03 K/mm3 (0.00-0.02); NRBC Auto 0.3 /100 WBC (0.0-0.2); Platelet Count 394 K/mm3 (150-400); RDW Coefficient Variation 14.6 % (11.7-14.2); RDW Standard Deviation 46.5 fL (35.1-46.3); Red Blood Cell Count 3.32 M/mm3 (3.80-5.20); White Blood Cell Count 10.06 K/mm3 (4.00-11.30)
[2018-09-15 04:34] LABS: Albumin, Blood 2.7 g/dL (3.4-5.0); Anion Gap 8 mmol/L (6-16); Blood Urea Nitrogen 52 mg/dL (8-24); Bun/Creatinine Ratio 39.4 (12.0-20.0); CO2, Blood 23 mmol/L (21-32); Calcium, Blood 8.4 mg/dL (8.5-10.1); Chloride, Blood 116 mmol/L (98-108); Creatinine, Blood 1.32 mg/dL (0.40-1.00); Glomerular Filtration Rate 43 (60-); Glucose, Blood 151 mg/dL (70-99); Phosphorus, Blood 2.4 mg/dL (2.5-4.9); Potassium, Blood 3.6 mmol/L (3.5-5.5); Sodium, Blood 147 mmol/L (136-145)
--- NOTE | 2018-09-15 06:25 | NUR ---
SHIFT SUMMARY: RESTS QUIETLY AT INTERVALS. MONITOR INTACT SHOWING SINUS RHYTHM HEART RATE 70'S- 80'S MEDICATED TWICE THIS SHIFT WITH ATIVAN FOR ANXIETY AND ONCE WITH ROXICODONE FOR PAIN. LUNG SOUNDS CLEAR UPPER LOBES WITH DECREASED SOUNDS IN THE BASES. RESPIRATIONS REGULAR AND EASY AT REST. ABDOMEN SOFT WITH BOWEL SOUNDS FOUR QUADS. GARCIA PATENT DRAINING CLARISA URINE. PAS TO LOWER EXTREMITIES. CONTINUE TO MONITOR AND REPORT CHANGE IN PATIENT CONDITION.
--- NOTE | 2018-09-15 07:30 | NUR ---
ASSUMED CARE: PT RESTING QUIETLY IN BED AT THIS TIME. NO ACUTE NEEDS OR CONCERNS NOTED AT THIS TIME.
[2018-09-15] MEDS ORDERED: ACET325 PO (14:08)
[2018-09-15] MEDS ORDERED: ATOR40TA PO (14:09)
[2018-09-15] MEDS ORDERED: CARV6.25 PO (14:43)
[2018-09-15] MEDS ORDERED: CEFP200 PO (14:43)
[2018-09-15] MEDS ORDERED: OXYC5 PO (14:44)
[2018-09-15] MEDS ORDERED: CLOP75 PO (14:44)
[2018-09-15] MEDS ORDERED: Isosorbide Mono30 MG PO (14:44)
[2018-09-15] MEDS ORDERED: FURO20 PO (14:44)
[2018-09-15] MEDS ORDERED: PRED10 (14:45)
[2018-09-15] MEDS ORDERED: AZIT500 PO (14:46)
[2018-09-15] MEDS ORDERED: LORA.5 PO (14:46)
--- NOTE | 2018-09-15 15:20 | NUR ---
DR WISDOM STATES PT IS TO BE MED WITH TELE ONCE PICC IS REMOVED
--- NOTE | 2018-09-15 17:10 | NUR ---
PICC NURSE REMOVED PICC LINE WITHOUT ISSUE. PT GIVEN DISCHARGE INSTRUCTIONS INCLUDING WHICH MEDS TO TAKE TONIGHT. PT TOLD ABOUT FOLLOW UP APPOINTMENTS AND TO TAKE ALL MEDICATIONS THE WAY THEY ARE ORDERED BY HOSPITAL PHYSICIANS UNTIL ABLE TO FOLLOW UP FOR APPOINTMENTS. DENIED FURTHER NEEDS OR CONCERNS. ESCORTED OUT VIA WHEEL CHAIR.
--- NOTE | 2018-09-15 17:29 | NUR ---
[facility]ual [facility] note: Frederick looks much brighter and happy today. She is pleased to be going home, and "to have someone to help me now." Provided prayer.
== END 2018-09-15 17:00 | disposition home or self-care (01) | DRG 871 ==
LOC: ER 01:30 → ICUE 05:37 → ICUW 05:37 → PCU 09-11 14:06 → ICUE 09-11 17:26 → PCU 09-12 13:21 → ICUE 09-12 15:15
PROVIDERS: Emergency Medicine; Family Medicine; Internal Medicine Critical Care Medicine; ADMIT Hospitalist
PROC: 02H633Z Insertion of Infusion Device into Right Atrium, Percutaneous Approach (ICD-10-PCS; principal; 2018-09-13)
DX: A41.9 Sepsis, unspecified organism (principal); I21.4 Non-ST elevation (NSTEMI) myocardial infarction; J96.21 Acute and chronic respiratory failure with hypoxia; J18.9 Pneumonia, unspecified organism; G92 Toxic encephalopathy; N17.9 Acute kidney failure, unspecified; N39.0 Urinary tract infection, site not specified; J44.0 Chronic obstructive pulmonary disease with (acute) lower respiratory infection; F11.20 Opioid dependence, uncomplicated; R65.20 Severe sepsis without septic shock; I10 Essential (primary) hypertension; M32.9 Systemic lupus erythematosus, unspecified; F32.9 Major depressive disorder, single episode, unspecified; F17.210 Nicotine dependence, cigarettes, uncomplicated; B95.2 Enterococcus as the cause of diseases classified elsewhere; F15.21 Other stimulant dependence, in remission
CPT/HCPCS: 36415; 36569; 36600; 51702; 70450; 71045; 71046; 74176; 80048; 80053; 80069; 80202; 81001; 82570; 82803; 82947; 83605; 83690; 83735; 83880; 84145; 84484; 84540; 85025; 87040; 87077; 87086; 87186; 93005; 93010; 93306; 93975; 94640; 94660; 96361-59; 96365-59; 96367-59; 97110; 97116; 97162; 97166; 97530; 97535; 99285-25; A9270; C1751; G0480; J0360; J0456; J0696; J0713; J1630; J1644; J1650; J1815; J1940; J2060; J2920; J2930; J3010; J3370; J3480; J7030; J7050; J7512

== ENCOUNTER → 2018-10-21 | Outpatient (CLI) | payer MEDICARE, OTHER ==
[~2018-10-21] MED LIST changes: +ATOR40TA PO; +AZIT500 PO; +CARV6.25 PO; +CEFP200 PO; +CLOP75 PO; +FURO20 PO; +Isosorbide Mono30 MG PO; +LORA.5 PO; +OXYC5 PO; +PRED10
[2018-10-21 18:45] LABS: BASOPHILS ABSOLUTE AUTO 0.05 K/mm3 (0.00-0.23); BASOPHILS PERCENT AUTO 1 % (0-2); EOSINOPHILS ABSOLUTE AUTO 0.44 K/mm3 (0.00-0.68); EOSINOPHILS PERCENT AUTO 6 % (0-6); Hemoglobin 10.3 g/dL (11.5-16.0); IMMATURE GRAN ABSOLUTE AUTO 0.03 K/mm3 (0.00-0.10); IMMATURE GRAN PERCENT AUTO 0 % (0-1); LYMPHOCYTES ABSOLUTE AUTO 2.05 K/mm3 (0.84-5.20); LYMPHOCYTES PERCENT AUTO 28 % (21-46); MONOCYTES ABSOLUTE AUTO 0.44 K/mm3 (0.16-1.47); MONOCYTES PERCENT AUTO 6 % (4-13); Mean Corpuscular HGB 28.6 pg (26.0-34.0); Mean Corpuscular HGB Conc 31.2 g/dL (31.5-36.5); Mean Corpuscular Volume 92 fL (80-100); Mean Platelet Volume 10.7 fL (9.1-12.4); NEUTROPHILS ABSOLUTE AUTO 4.31 K/mm3 (1.96-9.15); NEUTROPHILS PERCENT AUTO 59 % (41-73); Platelet Count 300 K/mm3 (150-400); RDW Coefficient Variation 14.6 % (11.7-14.2); RDW Standard Deviation 49.4 fL (35.1-46.3); White Blood Cell Count 7.32 K/mm3 (4.00-11.30)
[2018-10-21 20:05] LABS: Albumin, Blood 2.9 g/dL (3.4-5.0); Albumin/Globulin Ratio 0.9 (0.8-1.8); Bilirubin, Total 0.3 mg/dL (0.1-1.0); Bun/Creatinine Ratio 14.4 (12.0-20.0); Calcium, Blood 8.3 mg/dL (8.5-10.1); Creatinine, Blood 1.53 mg/dL (0.40-1.00); Globulin, Blood 3.3 g/dL (2.2-4.0); Potassium, Blood 4.3 mmol/L (3.5-5.5); Total Protein, Blood 6.2 g/dL (6.4-8.2)
== END | disposition home or self-care (01) ==
LOC: LAB SHORT 16:00 → LAB 16:00
PROVIDERS: Internal Medicine Rheumatology
DX: R76.8 Other specified abnormal immunological findings in serum (principal)
CPT/HCPCS: 80053; 85025; 85651

== ENCOUNTER 2020-02-08 14:34 | Emergency (ER) | payer MEDICARE, OTHER ==
[~2020-02-08] VITALS: Ht 162.6 cm; Wt 90.7 kg
[2020-02-08 15:34] LABS: BASOPHILS ABSOLUTE AUTO 0.06 K/mm3 (0.00-0.23); BASOPHILS PERCENT AUTO 1 % (0-2); EOSINOPHILS PERCENT AUTO 2 % (0-6); Hematocrit 40.9 % (33.0-51.0); Hemoglobin 13.3 g/dL (11.5-16.0); IMMATURE GRAN ABSOLUTE AUTO 0.06 K/mm3 (0.00-0.10); IMMATURE GRAN PERCENT AUTO 1 % (0-1); LYMPHOCYTES ABSOLUTE AUTO 2.49 K/mm3 (0.84-5.20); LYMPHOCYTES PERCENT AUTO 22 % (21-46); MONOCYTES ABSOLUTE AUTO 0.75 K/mm3 (0.16-1.47); MONOCYTES PERCENT AUTO 7 % (4-13); Mean Corpuscular HGB 27.9 pg (26.0-34.0); Mean Corpuscular HGB Conc 32.5 g/dL (31.5-36.5); Mean Corpuscular Volume 86 fL (80-100); Mean Platelet Volume 10.3 fL (9.1-12.4); NEUTROPHILS ABSOLUTE AUTO 8.02 K/mm3 (1.96-9.15); NEUTROPHILS PERCENT AUTO 69 % (41-73); Platelet Count 228 K/mm3 (150-400); RDW Standard Deviation 44.1 fL (35.1-46.3); Red Blood Cell Count 4.77 M/mm3 (3.80-5.20); White Blood Cell Count 11.58 K/mm3 (4.00-11.30)
[2020-02-08 15:43] LABS: Source, Urine Catheter
[2020-02-08 15:50] LABS: Albumin, Blood 3.2 g/dL (3.4-5.0); Albumin/Globulin Ratio 0.9 (0.8-1.8); Bilirubin, Total 0.6 mg/dL (0.1-1.0); Bun/Creatinine Ratio 15.7 (12.0-20.0); Calcium, Blood 8.5 mg/dL (8.5-10.1); Creatinine, Blood 1.34 mg/dL (0.40-1.00); Globulin, Blood 3.4 g/dL (2.2-4.0); Potassium, Blood 4.4 mmol/L (3.5-5.5); Total Protein, Blood 6.6 g/dL (6.4-8.2)
[2020-02-08 15:53] LABS: Appearance, Urine Hazy (Clear); Bilirubin, Urine Neg (Neg); Blood, Urine 2+ (Neg); Color, Urine Yellow (P-Yellow); Glucose Qualitative, Urine Neg (Neg); Ketones, Urine Neg (Neg); Leukocyte Esterase, Urine 2+ (Neg); Nitrite, Urine Neg (Neg); Protein, Urine 1+ (Neg); Urobilinogen, Urine NORM (Normal)
[2020-02-08 16:12] LABS: Bacteria Many /hpf; Squamous Epithelial Cells Few /hpf (Few); White Blood Cells, Urine 25-50 /hpf (0-5)
[2020-02-08] MEDS ORDERED: CEFP200 PO (16:39)
== END 2020-02-08 16:46 | disposition home or self-care (01) ==
LOC: ER 14:34
PROVIDERS: Emergency Medicine
DX: N39.0 Urinary tract infection, site not specified (principal); J44.9 Chronic obstructive pulmonary disease, unspecified; I25.10 Atherosclerotic heart disease of native coronary artery without angina pectoris; F17.200 Nicotine dependence, unspecified, uncomplicated; Z79.899 Other long term (current) drug therapy
CPT/HCPCS: 36415; 80053; 81001; 85025; 87077; 87086; 87186; 93005; 93010; 99284-25; A9270-GY

== ENCOUNTER 2020-02-11 08:49 | Inpatient (IN) | payer MEDICARE, OTHER ==
[~2020-02-11] VITALS: Ht 162.6 cm; Wt 93.1 kg
[2020-02-11] MEDS ORDERED: CEFP200 (09:01)
[2020-02-11] MEDS ORDERED: OMEP20ER PO (09:01)
[2020-02-11] MEDS ORDERED: PREGABALIN150 MG PO (09:02)
[2020-02-11 09:50] LABS: BASOPHILS ABSOLUTE AUTO 0.04 K/mm3 (0.00-0.23); BASOPHILS PERCENT AUTO 0 % (0-2); EOSINOPHILS ABSOLUTE AUTO 0.23 K/mm3 (0.00-0.68); EOSINOPHILS PERCENT AUTO 2 % (0-6); Hematocrit 41.9 % (33.0-51.0); Hemoglobin 13.2 g/dL (11.5-16.0); IMMATURE GRAN ABSOLUTE AUTO 0.06 K/mm3 (0.00-0.10); IMMATURE GRAN PERCENT AUTO 1 % (0-1); LYMPHOCYTES ABSOLUTE AUTO 1.52 K/mm3 (0.84-5.20); LYMPHOCYTES PERCENT AUTO 14 % (21-46); MONOCYTES ABSOLUTE AUTO 0.52 K/mm3 (0.16-1.47); MONOCYTES PERCENT AUTO 5 % (4-13); Mean Corpuscular HGB 26.9 pg (26.0-34.0); Mean Corpuscular HGB Conc 31.5 g/dL (31.5-36.5); Mean Corpuscular Volume 85 fL (80-100); Mean Platelet Volume 10.7 fL (9.1-12.4); NEUTROPHILS ABSOLUTE AUTO 8.16 K/mm3 (1.96-9.15); NEUTROPHILS PERCENT AUTO 78 % (41-73); Platelet Count 214 K/mm3 (150-400); RDW Coefficient Variation 13.5 % (11.7-14.2); RDW Standard Deviation 42.1 fL (35.1-46.3); Red Blood Cell Count 4.91 M/mm3 (3.80-5.20); White Blood Cell Count 10.53 K/mm3 (4.00-11.30)
[2020-02-11 10:01] LABS: Albumin, Blood 3.2 g/dL (3.4-5.0); Albumin/Globulin Ratio 0.8 (0.8-1.8); Bilirubin, Total 0.5 mg/dL (0.1-1.0); Bun/Creatinine Ratio 12.9 (12.0-20.0); Calcium, Blood 9.1 mg/dL (8.5-10.1); Creatinine, Blood 1.16 mg/dL (0.40-1.00); Globulin, Blood 3.9 g/dL (2.2-4.0); Potassium, Blood 4.4 mmol/L (3.5-5.5); Total Protein, Blood 7.1 g/dL (6.4-8.2)
[2020-02-11 11:04] LABS: Source, Urine Catheter
[2020-02-11 11:21] LABS: Appearance, Urine Clear (Clear); Bilirubin, Urine Neg (Neg); Blood, Urine 3+ (Neg); Color, Urine Yellow (P-Yellow); Glucose Qualitative, Urine Neg (Neg); Ketones, Urine 1+ (Neg); Leukocyte Esterase, Urine 2+ (Neg); Nitrite, Urine Neg (Neg); Protein, Urine 1+ (Neg); Specific Gravity, Urine 1.015 (1.003-1.022); Urobilinogen, Urine 1+ (Normal); pH, Urine 6.5 (5.0-8.0)
[2020-02-11] MEDS ORDERED: VRAYLAR1.5 MG PO (11:27)
[2020-02-11] MEDS ORDERED: Ventolin/Prove6.7 GM INH (11:29)
[2020-02-11] MEDS ORDERED: TRAZ100 PO ×2 (11:30→12:34)
[2020-02-11] MEDS ORDERED: Bisoprolol Fumar5 MG PO (11:31)
[2020-02-11] MEDS ORDERED: TORSE20 PO ×3 (11:32→12:34)
[2020-02-11] MEDS ORDERED: Vistaril50 MG PO ×2 (11:34→12:34)
[2020-02-11] MEDS ORDERED: BUPRENORPHIN-N1 EAC1 SL (11:36)
[2020-02-11 11:49] LABS: Bacteria Rare /hpf; Squamous Epithelial Cells Few /hpf (Few)
[2020-02-11 12:28] LABS: International Normalized Ratio 1.04; Prothrombin Time Results 11.1 Sec (9.7-11.5)
[2020-02-11] MEDS ORDERED: SUBOXONE 8 MG-1 EACH SL (12:33)
[2020-02-11] MEDS ORDERED: Klor-Con 1010 MEQ PO (12:35)
--- NOTE | 2020-02-11 15:07 | NUR ---
ADMIT ASSESSMENT- PT ADMITTED TO PCU FROM ER ON [facility]. AWAKE, ALERT, COOPERATIVE. NO DISTRESS. DENIES PAIN AT REST LONG FEET ARE NOT TOUCHING THE BED OR COVERS. FEET ELEVATED ON ONE PILLOW. SENSATION INTACT, DISTAL RIGHT FOOT COOL TO TOUCH. ONLY ABLE TO DOPPLE PT PULSE BILATERAL FEET. ADMISSION LIAISON LEFT FOOT 4 SECONDS, ADMISSION LIAISON RIGHT FOOT 5 SECONDS. SMALL REDDENED AREA TOP ON RIGHT FOOT, LARGER REDDENED AREA TOP OF LEFT FOOT. STATES HASN'T BEEN ABLE TO STAND UP SINCE FRIDAY DUE TO PAIN WITH PRESSURE. WEIGHT DONE-SENT TO PHARMACY. NOTIFICATION TO DR. SHULTZ OF CONSULT. LUNGS CLEAR, NO SOB. ZHENG SL INTACT. VSS, SKIN W/D. EXPLAINED PLAN OF CARE. PT'S SIGNIFICANT OTHER AT BEDSIDE
--- NOTE | 2020-02-11 16:02 | NUR ---
HEPARIN BOLUS AND GTT STARTED PER ORDERS. RX FOR PAIN WITH SOME IMPROVEMENT. STATES LEFT FOOT IS MORE PAINFUL THAN RIGHT. DR. SHULTZ CALLED-UPDATED.
--- NOTE | 2020-02-11 17:38 | NUR ---
C/O PAIN BILATERAL FEET, RX GIVEN. NPO. PLANS FOR CATH PROCEDURE. PULSES, ASSESSMENT UNCHANGED FROM PREVIOUS.
--- NOTE | 2020-02-11 18:35 | NUR ---
REPORT TO YUNIOR EPPERSON FROM [facility]. PT READIED FOR PROCEDURE. TO [facility] WITH RN'S IN ATTENDANCE
--- NOTE | 2020-02-11 21:00 | NUR ---
PT UP TO ICU 3 FROM [facility]. PT ADMITED D/T C/O PAIN IN BILAT FEET. 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 PT HAS R FEM ARTERY INFUSION CATH THAT ENDS IN L POPLITEAL ARTERY. TPA AND HEPARIN INFUSING. PT IS ON FLAT TIME.
--- NOTE | 2020-02-11 22:00 | NUR ---
DR SHULTZ IN TO SEE PT. ORDERS RECEIVED FOR 50-100MCG FENTANYL IV Q1P.
[2020-02-12 02:30] LABS: Bun/Creatinine Ratio 13.2 (12.0-20.0); Calcium, Blood 9.4 mg/dL (8.5-10.1); Creatinine, Blood 1.14 mg/dL (0.40-1.00); Potassium, Blood 3.8 mmol/L (3.5-5.5)
--- NOTE | 2020-02-12 05:59 | NUR ---
PEDAL PULSES STILL NOT PRESENT. L FOOT IS MORE PAINFUL THEN WHEN ADMITTED TO ICU. TIBIAL PULSES STRONG BILATERALLY. VSS T/O SHIFT. PT MAIN COMPLAINT HAS BEEN PAIN. FENTANYL GIVEN X 4. AND VERSED GIVEN X 1. PT IS AFEBRILE. IN SR. LUNGS CLEAR. SPO2 >90%. PLAN IS TO TAKE PT TO [facility] AT 0700.
--- NOTE | 2020-02-12 08:15 | NUR ---
AM NOTE... ASSUMED CARE OF PT APROX 0700, PT IS A&Ox4. 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 PT HAS RIGHT GROIN INFUSION CATH RUNNING TPA AND HEPARIN GTT PER ORDERS. PT IS TO GO BACK TO THE [facility] NURSE THIS AM TO ATTEMPT AND OPEN THE BLOCKAGES. PT'S VS STABLE AT THIS TIME BP IS SLIGHLTY ON THE HYPERTENSIVE SIDE, PT IS C/O OF SEVERE BACK AND BLE PAIN. PT HAS BEEN REQUIRED TO LAY FLAT D/T THE INFUSION CATH IN HER RIGHT GROIN, THIS IS INCREASING HER CHRONIC BACK PAIN PER THE PT. PT HAS BEEN MEDICATED PER EMAR WITH GOOD RESULTS. PT'S SUBOXEON WAS HELD D/T THE PT NEEDING TO GET NARCOTIC PAIN MEDICATIONS FOR SEDATION AND PAIN CONTROL. PT'S L/S CLEAR T/O ON RA. BT PRESENT AND HYPOACTIVE, ABD IS SOFT AND NONTENDER TO PALP. PT'S RIGHT GROIN SITE IS C/D/I, NO BLEEDING SWELLING OR HEMATOMA NOTED. NO EDEMA IS NOTED ON ASSESSMENT. CALL LIGHT IN REACH WILL CONTINUE TO MONITOR.
[2020-02-12 16:26] LABS: Source, Urine Catheter
[2020-02-12 16:42] LABS: Appearance, Urine Hazy (Clear); Bilirubin, Urine Neg (Neg); Blood, Urine 3+ (Neg); Color, Urine Yellow (P-Yellow); Glucose Qualitative, Urine Neg (Neg); Ketones, Urine Neg (Neg); Leukocyte Esterase, Urine Neg (Neg); Nitrite, Urine Neg (Neg); Protein, Urine 1+ (Neg); Specific Gravity, Urine 1.025 (1.003-1.022); Urobilinogen, Urine NORM (Normal)
--- NOTE | 2020-02-12 17:20 | NUR ---
SHIFT SUMMARY... NO ACUTE NEGATIVE CHANGES NOTED THIS SHIFT. PT'S VS HAVE BEEN STABLE. PT'S RIGHT GROIN SITE WITH SHEATH HAD A SMALL AMOUNT OF BLEEDING AT THE SITE, NO SWELLING OR HEMATOMA NOTED. GARCIA WAS PLACED WNL. PT HAS NOT HAD A BM THIS SHIFT. PER ORDERS tPA IS TO RUN AT 0.5MG/HR FOR 24HRS UNTIL 02/12 AT 0900, AND THE HEPARIN GTT IS TO RUN AT IT'S CURRENT RATE OF 6MLS/HR AND 4.29U/KG/HR FOR 24HRS THEN PHARMACY IS TO MANAGE IT. AT THE START OF THIS SHIFT THE PT'S PEDAL PULSES WERE ABSENT WITH DOPPLER USE, AT THIS TIME BOTH ARE MARKED AND DOPPLER IS ABLE TO PICK THEM UP. PT HAS BEEN MEDICATED FOR PAIN PER EMAR WITH GOOD RESULT. CALL LIGHT IN REACH WILL CONTINUE TO MONITOR UNTIL REPORT IS GIVEN TO ONCOMING RN.
[2020-02-12 17:41] LABS: Bacteria Few /hpf; Squamous Epithelial Cells Rare /hpf (Few); White Blood Cells, Urine 0-2 /hpf (0-5)
[2020-02-12 17:42] LABS: Amorphous Light (0-Heavy); Hyaline Casts 0-2 /lpf (0-2); Mucus Light (0-Heavy); Uric Acid Crystals Few /hpf
--- NOTE | 2020-02-12 20:00 | NUR ---
ASSUMED CARE: PT WENT TO LABOR SPECIALIST, NO INTERVENTION DONE/UNSUCCESSFUL. CAME BACK FROM LABOR SPECIALIST WITH INFUSION CATH IN R FEM ARTERY INFUSING WITH TPA. HEPARIN INFUSING INTO L PIV. PG TO RUA. GARCIA IN PLACE DRAINING CLEAR YELLOW URINE. [place] WRITTEN ORDERS FOR TPA TO INFUSE AT 0.5MG/HR THROUGH R FEM INFUSION CATH FOR 24 HRS (ENDS AT 0900 FRIDAY), HEPARIN TO INFUSE INTO A PERIPHERAL FOR 24 HRS WELL. AT END OF 24HRS TURN BOTH OFF. PHARMACY TO TAKE OVER HEPARIN DOSING AFTER 24 HRS. PT IS VERY DROWSY, WILL AWAKEN TO VERBAL STIMULI. COMPLAINS OF PAIN WHEN SHE IS AWAKE.
--- NOTE | 2020-02-12 23:45 | NUR ---
PT BP NOT RESPONDING TO SCHEDULED AND PRN HTN MEDS. CALL PLACED TO MIKE AND ORDERS RECEIVED FOR LABETOLOL 10MG IV Q6P.
--- NOTE | 2020-02-13 00:15 | NUR ---
LABETOLOL GIVEN. NOT EFFECTIVE AND DID NOT LOWER BP.
[2020-02-13 03:50] LABS: Hematocrit 40.1 % (33.0-51.0); Hemoglobin 12.9 g/dL (11.5-16.0); Mean Corpuscular HGB 27.5 pg (26.0-34.0); Mean Corpuscular HGB Conc 32.2 g/dL (31.5-36.5); Mean Corpuscular Volume 86 fL (80-100); Mean Platelet Volume 10.7 fL (9.1-12.4); Platelet Count 206 K/mm3 (150-400); RDW Coefficient Variation 13.5 % (11.7-14.2); RDW Standard Deviation 42.3 fL (35.1-46.3); Red Blood Cell Count 4.69 M/mm3 (3.80-5.20); White Blood Cell Count 10.87 K/mm3 (4.00-11.30)
[2020-02-13 04:18] LABS: Bun/Creatinine Ratio 13.5 (12.0-20.0); Calcium, Blood 8.8 mg/dL (8.5-10.1); Creatinine, Blood 1.11 mg/dL (0.40-1.00); Potassium, Blood 3.9 mmol/L (3.5-5.5)
--- NOTE | 2020-02-13 06:00 | NUR ---
SHIFT SUMMARY: PT FAIRLY DROWSY T/O SHIFT. PERRLA. ANSWERS QUESTIONS APPROPRIATELY. HELD ANY SEDATING MEDS INTIALLY. HOWEVER PT C/O PAIN ANYTIME SHE IS AWAKENED. SHE WAS ALSO TEARFUL. REQUESTED SEVERAL TIMES TO GET OUT OF BED STATING SHE CANT DO THIS. FENTANYL, VERSED, VISTARIL GIVEN *NOT AT THE SAME TIME*. PT HAD BEEN REFUSING TURNS, BUT FINALLY CONVICED PT TO ALLOW US TO TURN HER IT WILL TAKE SOME PRESSURE OFF HER BACK. WEDGE WAS MORE COMFORTABLE AND EFFECTIVE FOR PT COMPLIANCE WITH TURNS. ART INFUSION CATH IN R FEM IS SOFT, TENDER. DRESSING IS C/D/I AND UNCHANGED T/O SHIFT. GARCIA DRAINING DARK YELLOW URINE. PEDAL PULSES PRESENT- L PEDAL PULSES FAINT AT TIMES, BUT EASILY FOUND WITH DOPPLER. SAME WITH R PEDAL PULSE. BILAT FEET ARE WARM AND PINK. STILL PAINFUL. PG IS PATENT AND SL. WILL PASS REPORT TO ONCOMING SHIFT
--- NOTE | 2020-02-13 09:00 | NUR ---
AM NOTE ASSUMED CARE OF PT APROX 0700, PT IS A&Ox4 AND ON BEDREST WITH INFUSION CATH IN HER RIGHT FEMORAL ARTERY WHICH CURRENTLY HAS tPA RUNNING AT 0.5MG/HR PER ORDERS. PT ALSO HAS HEPARIN GTT RUNNING AT 6MLS/HR PER ORDERS. PT'S BP IS HYPERTENSIVE, PROVIDER AWARE AND NEW ORDERS OBTAINED FOR PO MEDICATION. PT'S OTHER VS STABLE, PT IS >92% ON 2L NC WHICH IS A CHANGE FROM YESTERDAY L/S EXP WHEEZES HEARD IN THE UPPER LOBES. BT PRESENT AND HYPOACTIVE, ABD IS SOFT AND NONTENDER TO PALP. NO EDEMA NOTED ON ASSESSMENT PT IS IN NSR IN THE 70'S-80'S. RIGHT GROIN SITE HAS CHG DRESSING WITH SOME OLD BLOOD NOTED AROUND THE SITE. PT IS C/O OF PAIN TO HER BILAT FEET BUT THE PAIN HAS IMPROVED FROM WHEN SHE FIRST CAME IN. PULSES IN THE BLE ARE FOUND BY DOPPLER ONLY AT THIS TIME BUT PEDAL AND TIBIAL PULSES ARE PRESENT. PT IS C/O OF SEVERE BACK PAIN CHRONIC AND ACUTE D/T HAVING TO LAY FLAT FOR SEVERAL DAYS. PT HAS ALSO STARTED TO C/O OF BEING DEPRESSED PROVIDER IS AWARE OF THIS, PT DENIES ANY SUICIDAL THOUGHTS/IDEAS AT THIS TIME. CALL LIGHT IN REACH WILL CONTINUE TO MONITOR.
--- NOTE | 2020-02-13 11:15 | NUR ---
PT UPDATE... CALLED DR. SHULTZ, PER HIS ORDERS tPA STOPPED AND PRESSURE SET STARTED TO RIGH GROIN INFUSION SHEATH. HEPARIN GTT RUNNING PER PHARMACY ORDERS. WILL CONTINUE TO MONITOR.
--- NOTE | 2020-02-13 12:22 | NUR ---
PT UPDATE... CALLED AND GAVE A VERBAL ORDER TO CONNECT THE HEPARIN GTT TO THE ARTERIAL SHEATH AND START THE INFUSION PER PHARMACY ORDERS. PHARMACY WAS CALLED AND NOTIFIED OF THIS AND THE INFUSION WAS STARTED IN THE RIGHT ARTERIAL SHEATH.
--- NOTE | 2020-02-13 14:02 | NUR ---
PT UPDATE... PT'S AT THE BEDSIDE, HE WAS UPDATED ON PT'S CONDITION AND PLAN OF CARE. VS STABLE, PT MEDICATED FOR PAIN PER EMAR WITH GOOD RESULTS. WILL CONTINUE TO MONITOR.
--- NOTE | 2020-02-13 17:56 | NUR ---
SHIFT SUMMARY... NO ACUTE NEGATIVE CHANGES NOTED THIS SHIFT. PT'S VS HAVE BEEN BETTER CONTROLLED WITH NEW MEDICATIONS ON BOARD. PT'S RIGHT GROIN SITE IS STABLE NO SWELLING BLEEDING OR HEMATOMA NOTED. PT STILL C/O BACK PAIN AND HAS BEEN MEDICATED PER EMAR WITH GOOD RESULTS. PT HAS NOT EATEN MUCH THIS SHIFT. HEPARIN IS INFUSION THROUGH THE INFUSION PORT IN THE RIGHT FEMORAL ARTERY PER 'S ORDERS. PULSES STILL PRESENT WITH DOPPLER, BILAT FEET ARE PINK RIGHT IS COOLER THAN THE LEFT BUT THE LEFT IS WARM. PT IS TO BE NPO AFTER MIDNIGHT FOR RETURN TO THE RECEPTIONIST TELEPHONE OPERATOR IN THE AM. CALL LIGHT IN REACH WILL CONTINUE TO MONITOR UNTIL REPORT IS GIVEN TO ONCOMING RN.
--- NOTE | 2020-02-13 20:42 | NUR ---
ASSUMED CARE AT 1900 PT LAYING IN BED WATCHING TV. PT A&O X4 AND STATES THAT SHE IS IN PAIN AND NAUSEOUS. PRN MEDICATIONS THEN GIVEN. RT FEM SITE SHOWING NO SIGNS OF BLEEDING OR HEMATOMA. HEPARIN INFUSING AT 17UNITS/KG/HR. HR 80. BP 149/63. RA O2 SAT >95%. GARCIA PATENT AND DRAINING TO GRAVITY. BILATERAL TIBIAL PULSES FOUND EASILY WITH DOPPLER. BILATERAL PEDAL PULSES DIFFICULT TO FIND WITH DOPPLER. SEE SHIFT ASSESSMENT FOR FULL ASSESSMENT.
[2020-02-14 04:31] LABS: Hematocrit 38.7 % (33.0-51.0); Hemoglobin 12.5 g/dL (11.5-16.0); Mean Corpuscular HGB 27.5 pg (26.0-34.0); Mean Corpuscular HGB Conc 32.3 g/dL (31.5-36.5); Mean Corpuscular Volume 85 fL (80-100); Mean Platelet Volume 10.5 fL (9.1-12.4); Platelet Count 214 K/mm3 (150-400); RDW Coefficient Variation 13.4 % (11.7-14.2); RDW Standard Deviation 41.6 fL (35.1-46.3); Red Blood Cell Count 4.55 M/mm3 (3.80-5.20); White Blood Cell Count 11.18 K/mm3 (4.00-11.30)
[2020-02-14 04:56] LABS: Bun/Creatinine Ratio 12.7 (12.0-20.0); Calcium, Blood 8.9 mg/dL (8.5-10.1); Creatinine, Blood 1.02 mg/dL (0.40-1.00); Thyroid Stimulating Hormone 1.37 uIU/mL (0.360-4.800)
--- NOTE | 2020-02-14 06:19 | NUR ---
END OF SHIFT SUMMARY PT SLEPT MOST OF THE NIGHT ONCE PM MEDICATION AND PRN FENTANYL PROVIDED. PT IS ABLE TO MAKE NEEDS KNOWN. RA O2 SAT >90%. HR 80'S. SBP 120-170. LT PEDAL PULSE FOUND EASILY WITH DOPPLER. RT PEDAL PULSE DIFFICULT TO FIND WITH DOPPLER. RT FEM CATH SHEATH NO SIGNS OF HEMATOMA OR BLEEDING. HEPARIN INFUSING THROUGH SHEATH AT 17UNITS/KG/HR. GARCIA IN PLACE AND DRAINING TO GRAVITY. PT NPO AFTER MIDNIGHT. WILL REPORT TO AM RN WHEN AVAILALBE.
--- NOTE | 2020-02-14 07:15 | NUR ---
AM NOTE... ASSUMED CARE OF PT APROX 0700, PT IS A&Ox4 AND ON BEDREST FOR DVTS TO BLE, PT HAS RIGHT GROIN SITE WITH INFUSION CATH IN PLACE CURRENTLY RUNNING HEPARIN GTT PER ORDERS. PT'S VS STABLE. PT HAS BEEN NPO SINCE MIDNIGHT FOR RETURN TO THE ASSEMBLER CLIP ON [employer] THIS AM. PT C/O OF BACK PAIN D/T LAYING FLAT FOR SEVERAL DAYS, PT MEDICATED PER EMAR. PT IS NSR IN THE 70'S-90'S. BP STABLE, TEMP 98.4. TRACE EDEMA NOTED TO THE TOPS OF HER FEET. PULSES FOUND BLE BY DOPPLER ONLY. GROIN SIT IS C/D/I NO SWELLING, BLEEDING OR HEMATOMA. GARCIA PATENT AND DRAINING DARK YELLOW URINE TO GRAVITY. CALL LIGHT IN REACH WILL CONTINUE TO MONITOR.
--- NOTE | 2020-02-14 11:57 | NUR ---
PT UPDATE... PT WAS TAKEN TO THE COMMUNITY HEALTH EDUCATION COORDINATOR APROX 0750 AND RETURNED AT 0940. PER PROVIDER'S ORDERS tPA IS TO BE RESTARTED AND HEPARIN GTT STARTED AT 6MLS/HR AND THEY ARE TO RUN THROUGH THE INFUSION SHEATH IN THE PT'S RIGHT GROIN. PT IS TO RETURN TO THE COMMUNITY HEALTH EDUCATION COORDINATOR AGAIN AROUND 1600. AN ECHO IS ORDERED FOR TODAY. PT MEDICATED FOR NAUSEA AND PAIN PER EMAR. WILL CONTINUE TO MONITOR.
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
--- NOTE | 2020-02-14 18:15 | NUR ---
SHIFT SUMMARY... PT RETURNED TO THE RECORDIST APROX 1600, SHE RETURNED TO HER ROOM APROX 1745. THE SHEATH WAS REMOVED AND AN ANGIO SEAL WAS PLACED IN THE RIGHT GROIN, SMALL DIME SIZED AMOUNT OF BLOOD IS NOTED TO THE DRESSING, THE AREA AROUND THE SITE IS SOFT AND NONTENDER TO PALP. PT'S VS STABLE. FAINT PULSES ARE PALPABLE TO BILAT FEET. PT WILL RETURN TO THE RECORDIST TOMORROW FOR ONE LAST TIME TO ATTEMPT THE CLOT REMOVAL OF THE RIGHT LEG. HEPARIN GTT RESTARTED PER ORDERS RUNNING AT 17UNITS/KG/HR. GARCIA INTACT AND DRAINING DARK YELLOW URINE TO GRAVITY. NO BM THIS SHIFT. PER THE PT UPON D/C SHE WANTES TO GO AND BE WITH HER SISTER JOSE IN [place], THE PT STATED SHE DID NOT FEEL SAFE AT HOME AND DOES NOT FEEL LIKE SHE WILL HAVE THE STABILITY AND CARE SHE WILL NEED TO RECOVER. PROVIDER IS AWARE. CALL LIGHT IN REACH WILL CONTINUE TO MONITOR UNTIL REPORT IS GIVEN TO ONCOMING RN.
--- NOTE | 2020-02-14 21:00 | NUR ---
ASSUMPTION OF CARE PT AWAKE IN BED, ORIENTEDx4, O2 SATURATIONS>90% ON RA. MONITOR SHOWS NSR, BP STABLE, PT IS AFEBRILE. BILAT PEDAL PULSES VERY FAINT, VERIFIED BY DOPPLER. PT DENIES PN TO FEET AT THIS TIME. R FEMORAL SHEATH SITE C/D/I WITH CAMERON DRESSING IN PLACE AND ANGIOSEAL PER FENCE MAKING MACHINE OPERATOR. GARCIA IN PLACE AND DRAINING TO GRAVITY, PT REPORTS NO BM SINCE 02/10, BOWEL CARE PROVIDED. PT DECLINED EVENING SUBOXONE, STS HAS NOT TAKEN THAT MEDICATION IN A WHILE. CALL LIGHT WITHIN REACH, PT DENIES ANY NEEDS AT THIS TIME.
--- NOTE | 2020-02-14 23:45 | NUR ---
REPORT GIVEN TO VENANCIO EPPERSON
--- NOTE | 2020-02-15 | NUR ---
ASSUMED CARE OF PATIENT, PATIENT SLEEPING, AWAKENS TO SLIGHT STIMULI. HYPOTENSIVE WHILE SLEEPING, SBP LOW 100'S WHEN AWAKE. RIGHT GROIN SITE SOFT WITH CLEAR DRESSING CD&I NO SWELLING OR OOZING SEEN. PEDAL PULSES WITH DOPPLER, RIGHT DP PULSE DIFFICULT TO FIND WITH DOPPLER. RIGHT FOOT COOL COMPARED TO LEFT FOOT. PATIENT ASSISTING WITH REPOSITIONING IN BED FOR COMFORT
--- NOTE | 2020-02-15 05:40 | NUR ---
PATIENT CONTINUES TO SLEEP WHEN UNDISTURBED, AWAKENS EASILY TO VERBAL STIMULI. RIGHT GROIN SITE WITH DRESSING CD&I, TENDER TO TOUCH BUT SOFT WITH NO SWELLING OR BLEEDING SEEN. PEDAL PULSES REMAIN DOPPLER, WITH RIGHT FOOT MORE DIFFICULT TO FIND THAN LEFT. RIGHT FOOT COOL TO TOUCH. PLAN TO RETURN TO [facility] FLEX DEVELOPER TODAY TO LOOK AT RIGHT FOOT. HEPARIN DRIP CONTINUES TITRATED BY PHARMACY.
--- NOTE | 2020-02-15 08:30 | NUR ---
ASSUMED CARE RECEIVED REPORT FROM ZEENAT CRAFT. PT WAS SLEEPING SOUND IN BED. SHE WOKE UP I ENTERED THE ROOM, ASKING FOR NICOTINE PATCH. SHE IS ALERT AND ORIENTED X 4. SHE IS ON A HEPARIN GTTP AT 16.5 UNITS/KG/HR, WITH A DOSE WEIGHT OF 70 KG, AND A RATE OF 23.1 ML/HR (VERIFIED WITH ORDERS AND VENANCIO Armijo). HER RIGHT FOOT IS COOL TO TOUCH, BUT HER LEFT FOOT IS WARM. THE RIGHT PEDAL PULSE IS DOPPABLE, BUT FAINT. THE RIGHT FEMORAL SITE, IS SOFT, TENDER, AND NO SIGNS OF HEMATOMA FORMATION. PT IS EXPEIRENCING PAIN IN HER RIGHT LEG/FOOT. BED LOW AND LOCKED. CALL LIGHT WITHIN REACH.
[2020-02-15 11:01] LABS: Creatinine, Blood 1.31 mg/dL (0.40-1.00)
--- NOTE | 2020-02-15 11:54 | NUR ---
PT LEFT TO MOBILE DISC [facility] AT 1150.
--- NOTE | 2020-02-15 14:38 | NUR ---
UPDATE PT BACK FROM [facility]PER[facility] AT 1350, HEPARIN RESTARTED AT 300 UNITS/HR (6 ML/HR) VIA PERIPHERAL IV. LEFT FEMORAL ARTERIAL SHEATHE IN PLACE, SURROUNDING SITE IS SOFT, NONTENDER AND NO SIGNS OF HEMATOMA FORMATION. PT'S FEET ARE WARM TO TOUCH. I CAN DOPPLE THE PT PULSE OF THE RIGHT FOOT, BUT IT IS FAINT. AND I CAN PALPATE +1 PULSES IN THE RIGHT PEDAL AND PT. PT STILL HAS PAIN OUT OF PROPORTION IN THE RIGHT LOWER EXTREM, BUT PAIN WITHIN PROPORTION OF THE LEFT LOWER EXTREM. TPA IS NOW INFUSING VIA ARTERIAL SHEATH AT 2 ML/HR (50ML/HR) THIS WILL BE FOR 5 HOURS, THEN TURNED DOWN TO 1 MG/HR FOR 12 HOURS. THIS HAS BEEN VERIFIED WITH OXANA Carter RN FROM [facility]. PT IS FLAT IN BED, AND EDUCATED ON THE IMPORTANCE OF LAYING FLAT. CALL LIGHT WITHIN REACH.
--- NOTE | 2020-02-15 17:37 | NUR ---
SHIFT SUMMARY PT LYING FLAT IN BED IN [place], ALERT AND ORIENTED X 4 - NO CHANGES WITH NEURO STATUS. SHE HAS BEEN STRUGGLING WITH RLE BURNING/SHARP, THROBBING PAIN. PT REQUIRING FREQUENT FENTANYL BOLUSES, CALLED DR. BYRD TO SWITCH PAIN MANAGEMENT TO INCLUDE LONG-ACTING ORAL MED. PT IS OKAY WITH THIS. HOLDING SUBOXONE WHILE PT GETTING OPIATES. SHE WENT TO THE ASTRONOMY PROFESSOR TODAY, AND HER LEFT FEMORAL ARTERY WAS ACCESSED, THE SHEATHE IS STILL IN PLACE, THE SITE IS TENDER, BUT SOFT AND SHOWING NO SIGNS OF HEMATOMA FORMATION. PT DENIES BACK PAIN. NO BRUISING IN THE AREA. SHE DENIES PAIN IN HER LLE, UNLESS IT IS TOUCHED. THE LEFT FOOT IS SLIGHTLY WARMER THAN THE RIGHT, BUT THE TEMPERATURE OF THE RIGHT FOOT HAS IMPROVED SINCE BEFORE THE PROCEDURE. I DO NOT HEAR ANYTHING WHEN I DOPPLE THE PEDAL PULSE, BUT I CAN HEAR A STRONG PULSE IN THE POST TIB (ON THE RLE). THE LLE HAS A 1+ PALPABLE PEDAL PULSE, AND THE POST TIB HAS A STRONG DOPPABLE PULSE. THE PT IS RECEIVING HEPARIN AT 300 UNITS/HR, OR 6 ML/HR SYSTEMICALLY (VIA PERIPHERAL IV), AND tPA AT 2 MG/HR (UNTIL 1930, THEN ITS DECREASED TO 1 MG/HR FOR 12 HOURS) VIA LEFT FEMORAL ARTERIAL SHEATHE. PT'S BP HAS BEEN STABLE. SINUS RHYTHM, RATE IN THE 80s RELATIVELY UNCHANGED SINCE SHES BEEN BACK. SHE TOLERATES CLEAR LIQUIDS FINE. SHE IS VERY HUNGRY. THE PLAN IS TO GO BACK TO ASTRONOMY PROFESSOR IN THE MORNING. PT HAS A PATENT GARCIA DRAINING YELLOW URINE. BED LOW AND LOCKED. CALL LIGHT AND PHONE WITHIN REACH.
--- NOTE | 2020-02-15 18:18 | NUR ---
Provided supportive visit and prayer. Frederick spoke more about her marriage, and I helped her process through some of these emotions. She recognizes life changes needed. Gentle youth counselor well recieved. I will remain available.
--- NOTE | 2020-02-15 19:15 | NUR ---
PATIENT AWAKE C/O SEVER BURNING PAIN TO RIGHT FOOT AND LEG FROM KNEE DOWN. SHEATH IN PLACE TO LEFT GROIN WITH TPA INFUSING AT 2 MG/HR. HEPARIN INFUSING AT SET RATE OF 6CC/HR. RIGHT GROIN SITE REMAINS STABLE. LEFT PEDAL PULSES EASY TO FIND WITH DOPPLER, RIGHT PEDAL PULSES CONTINUE TO BE DIFFICULT TO FIND BUT CAP REFILL BETTER THAN IT WAS LAST NIGHT.
--- NOTE | 2020-02-15 19:30 | NUR ---
TPA INFUSION DECREASED TO 1 MG/HR
[2020-02-16 04:18] LABS: Hematocrit 27.6 % (33.0-51.0); Hemoglobin 9.2 g/dL (11.5-16.0); Mean Corpuscular HGB 28.3 pg (26.0-34.0); Mean Corpuscular HGB Conc 33.3 g/dL (31.5-36.5); Mean Corpuscular Volume 85 fL (80-100); Mean Platelet Volume 10.2 fL (9.1-12.4); Platelet Count 206 K/mm3 (150-400); RDW Coefficient Variation 13.5 % (11.7-14.2); Red Blood Cell Count 3.25 M/mm3 (3.80-5.20); White Blood Cell Count 10.25 K/mm3 (4.00-11.30)
[2020-02-16 04:38] LABS: Bun/Creatinine Ratio 20.5 (12.0-20.0); Calcium, Blood 8.3 mg/dL (8.5-10.1); Creatinine, Blood 1.17 mg/dL (0.40-1.00); Potassium, Blood 4.4 mmol/L (3.5-5.5)
--- NOTE | 2020-02-16 06:28 | NUR ---
SUMMARY PATIENT SLEEPING OFF AND ON T/O NIGHT AWAKENS EASILY TO STIMULI. MEDICATED FREQUENTLY FOR BURNING PAIN TO RIGHT FOOT AND LEG FROM KNEE DOWN. NIGHT PROGRESSED PAIN EASIER TO MANAGE AND PEDAL PULSES EASIER TO FIND WITH DOPPLER. LEFT FOOT REMAINING UNCHANGED. LEFT GROIN WITH SHEATH IN PLACE WITH TPA INFUSING PER ORDER. AND HEPARIN DRIP CONTINUES AT SET RATE. PATIENT DOING WELL AVOIDING GROIN FLEXION, AND KEEPING LEGS STRAIGHT. PATIENT LU CLEAR LIQUID SNACK BEFORE BED OF GELETEIN PLUS AND CHICKEN BROTH. NPO AFTER MIDNIGHT FOR RETURN TO TIMING ADJUSTER THIS MORNING.
--- NOTE | 2020-02-16 07:21 | NUR ---
ASSUMED CARE FROM ZEENAT CRAFT. PT LAYING SUPINE W/ HEAD ELEVATED @ 15 DEGREES. A&O, RESPONDS APPROPRIATELY, EXPRESSES HER NERVOUSNESS FOR CASE MGR PROCEDURE THIS AM, HOWEVER PT IS CALM & AGREEABLE. REPORTS IMPROVED SLEEP FROM PREVIOUS NOC. HEPARIN GTT INF @ 6u/kg/hr. L PEDAL PULSE FAINT, R PEDAL PULSE MARKED BY PREVIOUS RN & AUDIBLE BY DOPPLER. R FEMORAL SITE DRESSING C/D/I W/ MODERATE BRUSING NOTED BENEATH THE DRESSING. TENDER TO PALP. L FEMORAL SHEATH SITE IS WNL, DRESSING C/D/I. CASE MGR ARRIVES @ 0712 TO TRANSPORT PT FOR PROCEDURE.
--- NOTE | 2020-02-16 09:10 | NUR ---
SPOKE W/ DR Cordero IN REGARDS TO TPA ORDERS. TO BE GIVEN @ 1mg/hr x5HR & PT WILL THEN BE TRANSFERRED TO HOSPICE MUSIC THERAPY FOR REEVAL & BACK TO ICU. TPA RATE CHANGED W/ JENNY EPPERSON @ BEDSIDE TO VERIFY. Gil ALSO STS HEPARIN TO REMAIN INF @ 4u/kg/hr & TO DC LAB DRAWS FOR FIBRINOGEN.
--- NOTE | 2020-02-16 12:22 | NUR ---
SPOKE W/ MARK IN PHARMACY REGARDING PT's HOME MED, CARIPRAZINE, WHICH IS IN THE eMAR TO BE GIVEN DAILY. PHARMACY HAS NOT RECEIVED THE MED TO LABEL & VERIFY. PT IS SLEEPING @ THIS TIME, HOWEVER THIS SHIFT WILL CONFIRM IF SHE HAS THE MEDICATION IN HER BELONGINGS OR IF FAMILY IS BRINGING IT IN. MED WAS HELD YESTERDAY, WILL BE HELD AGAIN UNTIL RESOLVED.
[2020-02-16 12:40] LABS: Hematocrit 27.2 % (33.0-51.0); Hemoglobin 8.8 g/dL (11.5-16.0); Mean Corpuscular HGB 27.6 pg (26.0-34.0); Mean Corpuscular HGB Conc 32.4 g/dL (31.5-36.5); Mean Corpuscular Volume 85 fL (80-100); Mean Platelet Volume 12.1 fL (9.1-12.4); Platelet Count 147 K/mm3 (150-400); RDW Coefficient Variation 13.6 % (11.7-14.2); RDW Standard Deviation 43.1 fL (35.1-46.3); Red Blood Cell Count 3.19 M/mm3 (3.80-5.20); White Blood Cell Count 8.29 K/mm3 (4.00-11.30)
--- NOTE | 2020-02-16 13:35 | NUR ---
SOAP MIXER TEAM ARRIVES TO TAKE PT FOR RE-EVAL. HEPARIN & tPA GTT STOPPED PER ORDERS. R ANTERIOR TIBIAL PULSE NOTED TO BE ABSENT, NOT FOUND W/ DOPPLER. THIS WAS REPORTED TO SOAP MIXER ZEENAT CERVANTES WHO WILL INFORM Gil OF THIS CHANGE.
--- NOTE | 2020-02-16 14:20 | NUR ---
PT ARRIVES BACK FROM RESPIRATORY ASSISTANT. PT IS MORE AWAKE & IS IN GOOD SPIRITS. RESPIRATORY ASSISTANT ZEENAT CERVANTES REPORTS PROCEDURE WAS SUCCESSFUL & NEW ORDERS TO BE PLACED FOR HEPARIN GTT 16u/kg/hr. SHEATHE REMOVED IN RESPIRATORY ASSISTANT & ANGIOSEAL PLACED. WILL CONTINUE TO MONITOR ANGIOSEAL SITE & PULSES
--- NOTE | 2020-02-16 14:49 | NUR ---
HEPARIN INF STARTED BACK @ 16.4 u/kg/hr PER [facility] ORDERS. PT PROVIDED W/ CLEAR LIQUID LUNCH & PT TOLERATED WELL & ATE 75%. PLAN TO LAY SUPINE X2HR & BED BATH TO ASSESS PT'S COMFORT W/ MOVEMENT & SKIN INTEGRITY.
--- NOTE | 2020-02-16 15:33 | NUR ---
PT W/ SUDDEN ONSET OF HYPOTENSION OF 65/45. RN @ BEDSIDE, F/U BP 86/39. FLUID BOLUS STARTED WO & IMMEDIATE F/U BP 90/50. L FEMORAL SITE IS WNL, NO OBVIOUS BLEEDING OR OUT OF PROPORTION PAIN. PEDAL PULSES +2. NO CHANGE IN MENTATION. DR Cordero CALLED & UPDATED ON PT STATUS. SUGGESTED LAB DRAW FOR Hbg & Hct & PROVIDER AGREES. WILL CONTINUE TO MONITOR CLOSELY & TREND BPs APPROPRIATE.
[2020-02-16 16:00] LABS: Hematocrit 24.6 % (33.0-51.0); Hemoglobin 7.9 g/dL (11.5-16.0)
--- NOTE | 2020-02-16 17:44 | NUR ---
SHIFT SUMMARY: PT SLEEPS WHEN UNDISTURBED, AROUSES EASILY W/ VERBAL STIMULI. NO CHANGE IN MENTATION. PG TO CLEMENT IS C/D/I & SALINE LOCKED. PERIF IV TO ZHENG REMAINS PATENT W/ HEPARIN GTT @ 16.4u/kg/hr. ANGIOSEAL TO STU GROIN SITES, BRUISING UNCHANGED TO THE R & L REMAINS C/D/I, NO BRUISING/BLEEDING/HEMATOMA. HR TRENDING 90s W/ SBP 90s-120s. DIET ADVANCED TO CARDIAC DIET. PT ABLE TO DEEP BREATHE & COUGH W/ MOIST, NONPRODUCTIVE COUGH. INTAKE vs. OUTPUT IS [phone]. PT WAS ABLE TO SPEAK W/ HER SISTER ON THE PHONE, SEEMINGLY AMICALBLE CONVERSATION. PEDAL PULSES REMAIN STRONG, @ TIMES REQUIRE DOPPLER PULSES ARE DIFF TO APPRECIATE D/T EDEMA. H&H TRENDING DOWN, REPEAT LABS IN THE AM. THE DAY PROGRESSED, PT REPORTED CONSISTENT 8/10 PAIN. HOWEVER BEHAVIOR DOES NOT APPEAR TO REFLECT THIS REPORT. NO GRIMACING, MOANING, OR CRYING OBSERVED. PT OFTEN SLEEPS. PT's HOME MED CARIPRAZINE, IS W/ THE PT'S SPOUSE WHO WAS GOING TO BRING IT IN, HOWEVER, HE HAS BEEN UNABLE TO. PT DOES NOT HAVE ANY OF THIS MED W/ HER. HOSPITALIST TO BE INFORMED & REPORTED TO ONCOMING RN. WILL CONTINUE TO MONITOR UNTIL BEDSIDE REPORT GIVEN.
--- NOTE | 2020-02-16 22:30 | NUR ---
ASSUMPTION OF CARE PT AWAKE IN BED, ORIENTED x4, O2 SATURATIONS> 90% ON RA, MONITOR SHOWS SINUS RHYTHM WITH HR 90'S-110, HYPOTENSIVE WITH SBP 70'S-80'S. CALL PLACED TO ALISON KAUFFMAN TRUST AND ESTATES PARALEGAL, ORDERS TO HOLD EVENING DOSE OF MS CONTIN AND BOLUS 1000ml NS, BP IMPROVED DURING BOLUS AND THEN DROPPED ONCE BOLUS WAS COMPLETE, NEW ORDER FOR 500ml NS BOLUS THEN INFUSE REMAINING 500ml @ 100ml/hr. PT WITH BILAT GROIN SITES (PREVIOUS SHEATHS) BOTH WITH ANGIOSEAL AND TEGADERM DRESSING. PT REPORTS TENDERNESS WITH PALPATION TO BILAT GROIN SITES, SITES SOFT, BRUISING NOTED TO R GROIN. PT REPORTS PAIN TO R FOOT THAT FEELS LIKE PINS AND NEEDLES, VERY TENDER WITH PALPATION. BILAT PEDAL PULSES VERY WEAK, VERIFIED BY DOPPLER, GOOD CAP REFILL. MEPILEX IN PLACE TO SACRUM AND BILAT HEELS TO PREVENT PRESSURE ULCERS, PT EDUCATED ON IMPORTANCE OF TURNING TO PREVENT PRESSURE ULCERS, PT VERBALIZES UNDERSTANDING, PT DEMONSTRATES ABILITY TO MAKE MINOR TURNS INDEPENDENTLY IN BED. GARCIA REMAINS IN PLACE DRAINING CLEAR YELLOW URINE. PT REPORTS NO BM SINCE 02/10, PASSING FLATUS, MILK OF MAG ADMINISTERED. CALL LIGHT WITHIN REACH, PT USING APPROPRIATELY.
[2020-02-17 04:14] LABS: Hematocrit 23.6 % (33.0-51.0); Hemoglobin 7.5 g/dL (11.5-16.0); Mean Corpuscular HGB 27.9 pg (26.0-34.0); Mean Corpuscular HGB Conc 31.8 g/dL (31.5-36.5); Mean Corpuscular Volume 88 fL (80-100); Platelet Count 204 K/mm3 (150-400); RDW Coefficient Variation 13.6 % (11.7-14.2); RDW Standard Deviation 43.8 fL (35.1-46.3); Red Blood Cell Count 2.69 M/mm3 (3.80-5.20); White Blood Cell Count 7.81 K/mm3 (4.00-11.30)
[2020-02-17 04:32] LABS: Bun/Creatinine Ratio 16.1 (12.0-20.0); Calcium, Blood 7.6 mg/dL (8.5-10.1); Creatinine, Blood 1.12 mg/dL (0.40-1.00); Potassium, Blood 3.7 mmol/L (3.5-5.5)
--- NOTE | 2020-02-17 06:23 | NUR ---
SHIFT SUMMARY PT SLEPT WELL T/O NIGHT, REMAINS AROUSABLE TO VERBAL, ORIENTED x4, VSS AFTER 1500ml NS BOLUS AT BEGINNING OF SHIFT. BILAT GROIN SITES REMAIN TENDER BUT SOFT, PEDAL PULSES FAINT BUT PALPABLE. GARCIA REMAINS IN PLACE WITH GOOD OUTPUT, NO BM THIS SHIFT. ATTEMPTS TO REPOSITION PT THIS SHIFT UNNSUCCESSFUL, PT REPORTS DISCOMFORT ON EITHER R OR L SIDES AND PREFERS SUPINE, EDUCATION PROVIDED REGARDING PRESSURE ULCER PREVENTION, MEPILEX IN PLACE TO BILAT HEALS AND SACRUM. CALL LIGHT WITHIN REACH, PT USING APPROPRIATELY.
--- NOTE | 2020-02-17 14:12 | NUR ---
PT WORKING WITH PHYSICAL THERAPY AT THIS TIME.
--- NOTE | 2020-02-17 16:08 | NUR ---
PT HAS BEEN OOB X 3 SO FAR THIS SHIFT. STRENGTH AND TOLERANCE IMPROVING EACH TIME. PT REPORTS 5/10 RIGHT FOOT PAIN. MED WITH TYLENOL PO-SEE EMAR. PT REPORTED ITCHING TO COCCYX/BUTTOCKS AREA. FOAM DRESSING REMOVED AND NEW DRESSING PLACED-NO REDNESS NOTED. FOAM DRESSING IN PLACE PREVENTATIVE MEASURE. PT ENCOURAGED TO TURN/REPOSITION FREQUENTLY-EVERY 1-2 HOURS. PT VERBALIZES BOTH UNDERSTANDING AND COOPERATION.
--- NOTE | 2020-02-17 18:11 | NUR ---
PT MED WITH OXYCODONE 5 MG PO FOR COMPLAINT OF RIGHT FOOT PAIN-SEE EMAR. NO OTHER ACUTE CHANGES. REPORT GIVEN TO ZEENAT STILL IN PREP TO TRANSFER PT TO ROOM 329.
--- NOTE | 2020-02-17 18:40 | NUR ---
Supportive visit and prayer provided.
--- NOTE | 2020-02-17 19:03 | NUR ---
SHIFT SUMMARY PT TRANSFERRED TO UNIT AT APPROXIMATELY 1835. PT IS AO AND IN BED AT THIS TIME. REPORT GIVEN TO SECURITY REPRESENTATIVE NURSE. PT HAS CALL LIGHT IN REACH, BED IN LOW POSITION.
--- NOTE | 2020-02-18 06:47 | NUR ---
SHIFT SUMMARY PT IS A 64 Y/O FEMALE, ADMITTED FOR CRITICAL LOWER LIMB ISCHEMIA, TRANSFERED FROM ICU YESTERDAY. PT IS A&O X 4, 1PA C FWW. PT C/O BLE TINGLING AND PAIN, AND WAS MEDICATED ONCE WITH PRN ROXICODONE. NO C/O NAUSEA OR SOB. VITAL SIGNS STABLE. GARCIA IN PLACE, PATENT AND DRAINING. PT SLEPT FOR A FEW HOURS DURING THE NIGHT. NO ACUTE CHANGES IN PT CONDITION NOTED. REPORT GIVEN TO ONCOMING RN.
[2020-02-18] MEDS ORDERED: ACET325 PO (14:16)
[2020-02-18] MEDS ORDERED: AIRDUO RESPICL1 EAC4 INH (14:16)
[2020-02-18] MEDS ORDERED: AMLO5 PO (14:16)
[2020-02-18] MEDS ORDERED: XARELTO20 MG PO (14:17)
[2020-02-18] MEDS ORDERED: OXAYDO5 M1 PO (14:17)
--- NOTE | 2020-02-18 16:13 | NUR ---
PT DISCHARGED FROM THE UNIT. IVS REMOVED. DISCHARGE INSTRUCTIONS REVIEWED. HARD SCRIPT GIVEN. PT SISTER TO DRIVE HOME. PT WILL HAVE HOME HEALTH FOLLOWING.
== END 2020-02-18 16:07 | disposition home health service (06) | DRG 271 ==
LOC: ER 08:49 → ICUE 08:50 → PCU 08:50 → ICUE 19:55 → MEDS 02-17 18:30 → ENPENDDIS 02-18 10:20 → MEDS 02-18 16:07
PROVIDERS: Internal Medicine; Physician Assistant; Radiology Diagnostic Radiology; ADMIT Internal Medicine
PROC: 3E05317 Introduction of Other Thrombolytic into Peripheral Artery, Percutaneous Approach (ICD-10-PCS; principal; 2020-02-11)
PROC: 3E02340 Introduction of Influenza Vaccine into Muscle, Percutaneous Approach (ICD-10-PCS; 2020-02-11)
PROC: 04CQ3ZZ Extirpation of Matter from Left Anterior Tibial Artery, Percutaneous Approach (ICD-10-PCS; 2020-02-12)
PROC: 047N3ZZ Dilation of Left Popliteal Artery, Percutaneous Approach (ICD-10-PCS; 2020-02-12)
PROC: 047Q3ZZ Dilation of Left Anterior Tibial Artery, Percutaneous Approach (ICD-10-PCS; 2020-02-12)
PROC: 047S3ZZ Dilation of Left Posterior Tibial Artery, Percutaneous Approach (ICD-10-PCS; 2020-02-12)
PROC: 04CN3ZZ Extirpation of Matter from Left Popliteal Artery, Percutaneous Approach (ICD-10-PCS; 2020-02-12)
PROC: 3E05317 Introduction of Other Thrombolytic into Peripheral Artery, Percutaneous Approach (ICD-10-PCS; 2020-02-12)
PROC: 04CQ3ZZ Extirpation of Matter from Left Anterior Tibial Artery, Percutaneous Approach (ICD-10-PCS; 2020-02-14)
PROC: 04CU3ZZ Extirpation of Matter from Left Peroneal Artery, Percutaneous Approach (ICD-10-PCS; 2020-02-14)
PROC: 04CN3ZZ Extirpation of Matter from Left Popliteal Artery, Percutaneous Approach (ICD-10-PCS; 2020-02-14)
PROC: 047N3ZZ Dilation of Left Popliteal Artery, Percutaneous Approach (ICD-10-PCS; 2020-02-14)
PROC: B41F1ZZ Fluoroscopy of Right Lower Extremity Arteries using Low Osmolar Contrast (ICD-10-PCS; 2020-02-14)
PROC: 3E05317 Introduction of Other Thrombolytic into Peripheral Artery, Percutaneous Approach (ICD-10-PCS; 2020-02-14)
PROC: 04CM3ZZ Extirpation of Matter from Right Popliteal Artery, Percutaneous Approach (ICD-10-PCS; 2020-02-15)
PROC: 04CP3ZZ Extirpation of Matter from Right Anterior Tibial Artery, Percutaneous Approach (ICD-10-PCS; 2020-02-15)
PROC: 3E05317 Introduction of Other Thrombolytic into Peripheral Artery, Percutaneous Approach (ICD-10-PCS; 2020-02-15)
PROC: 04CT3ZZ Extirpation of Matter from Right Peroneal Artery, Percutaneous Approach (ICD-10-PCS; 2020-02-16)
PROC: 04CM3ZZ Extirpation of Matter from Right Popliteal Artery, Percutaneous Approach (ICD-10-PCS; 2020-02-16)
PROC: B41F1ZZ Fluoroscopy of Right Lower Extremity Arteries using Low Osmolar Contrast (ICD-10-PCS; 2020-02-16)
PROC: 3E05317 Introduction of Other Thrombolytic into Peripheral Artery, Percutaneous Approach (ICD-10-PCS; 2020-02-16)
DX: I70.223 Atherosclerosis of native arteries of extremities with rest pain, bilateral legs (principal); I74.3 Embolism and thrombosis of arteries of the lower extremities; N39.0 Urinary tract infection, site not specified; I13.0 Hypertensive heart and chronic kidney disease with heart failure and stage 1 through stage 4 chronic kidney disease, or unspecified chronic kidney disease; I50.32 Chronic diastolic (congestive) heart failure; Z20.828 Contact with and (suspected) exposure to other viral communicable diseases; F17.210 Nicotine dependence, cigarettes, uncomplicated; J44.9 Chronic obstructive pulmonary disease, unspecified; M79.7 Fibromyalgia; D50.0 Iron deficiency anemia secondary to blood loss (chronic); N18.30 Chronic kidney disease, stage 3 unspecified; M32.9 Systemic lupus erythematosus, unspecified; G89.29 Other chronic pain; M06.9 Rheumatoid arthritis, unspecified; F32.9 Major depressive disorder, single episode, unspecified; M54.9 Dorsalgia, unspecified; Z23 Encounter for immunization; Z74.09 Other reduced mobility; Z79.899 Other long term (current) drug therapy; Z79.891 Long term (current) use of opiate analgesic; Z88.0 Allergy status to penicillin; Z88.1 Allergy status to other antibiotic agents; Z88.8 Allergy status to other drugs, medicaments and biological substances
CPT/HCPCS: 36247; 36415; 37184; 37185; 37211; 37213; 37214; 37224; 37228; 37232; 75625; 75710; 75716; 75774; 76937; 80048; 80053; 81001; 82565; 84443; 85014; 85018; 85025; 85027; 85384; 85610; 85730; 86140; 87077; 87086; 87186; 93005; 93010; 93308; 93321; 93922; 94640; 94760; 96374; 96375; 96376; 97110; 97116; 97162; 97530; 99152; 99153; 99285-25; A9270; A9270-GY; C1725; C1751; C1757; C1760; C1769; C1887; C1894; G0008; G0378; J1170; J1644; J2060; J2250; J2405; J2916; J2997; J3010; J7030; J7040; J7050; P9612; Q0164; Q2038; Q9967; U0004

== ENCOUNTER 2020-06-09 18:10 | Emergency (ER) | payer MEDICARE, OTHER ==
[~2020-06-09] VITALS: Ht 162.6 cm; Wt 90.7 kg
[~2020-06-09 18:10] MED LIST changes: +AIRDUO RESPICL1 EAC4 INH; +BUPRENORPHIN-N1 EAC1 SL; +Bisoprolol Fumar5 MG PO; +CEFP200; +Klor-Con 1010 MEQ PO; +OMEP20ER PO; +OXAYDO5 M1 PO; +PREGABALIN150 MG PO; +SUBOXONE 8 MG-1 EACH SL; +TORSE20 PO; +TRAZ100 PO; +VRAYLAR1.5 MG PO; +Ventolin/Prove6.7 GM INH; +Vistaril50 MG PO; +XARELTO20 MG PO
[2020-06-09 19:15] LABS: BASOPHILS ABSOLUTE AUTO 0.05 K/mm3 (0.00-0.23); BASOPHILS PERCENT AUTO 1 % (0-2); EOSINOPHILS ABSOLUTE AUTO 0.19 K/mm3 (0.00-0.68); EOSINOPHILS PERCENT AUTO 2 % (0-6); Hematocrit 40.5 % (33.0-51.0); Hemoglobin 12.9 g/dL (11.5-16.0); IMMATURE GRAN ABSOLUTE AUTO 0.04 K/mm3 (0.00-0.10); IMMATURE GRAN PERCENT AUTO 1 % (0-1); LYMPHOCYTES ABSOLUTE AUTO 1.42 K/mm3 (0.84-5.20); LYMPHOCYTES PERCENT AUTO 17 % (21-46); MONOCYTES ABSOLUTE AUTO 0.47 K/mm3 (0.16-1.47); MONOCYTES PERCENT AUTO 6 % (4-13); Mean Corpuscular HGB 24.5 pg (26.0-34.0); Mean Corpuscular HGB Conc 31.9 g/dL (31.5-36.5); Mean Corpuscular Volume 77 fL (80-100); Mean Platelet Volume 10.7 fL (9.1-12.4); NEUTROPHILS ABSOLUTE AUTO 6.27 K/mm3 (1.96-9.15); NEUTROPHILS PERCENT AUTO 74 % (41-73); Platelet Count 327 K/mm3 (150-400); RDW Coefficient Variation 15.6 % (11.7-14.2); RDW Standard Deviation 43.8 fL (35.1-46.3); Red Blood Cell Count 5.27 M/mm3 (3.80-5.20); White Blood Cell Count 8.44 K/mm3 (4.00-11.30)
[2020-06-09 19:47] LABS: Alanine Aminotransfer (ALT/SGP 18 U/L (12-78); Albumin, Blood 3.6 g/dL (3.4-5.0); Albumin/Globulin Ratio 0.9 (0.8-1.8); Alk Phos 132 U/L (50-136); Anion Gap 7 mmol/L (6-16); Aspartate Aminotrans (AST/SGOT 11 U/L (12-37); Bilirubin, Total 0.3 mg/dL (0.1-1.0); Blood Urea Nitrogen 11 mg/dL (8-24); Bun/Creatinine Ratio 9.6 (12.0-20.0); CO2, Blood 22 mmol/L (21-32); Calcium, Blood 9.1 mg/dL (8.5-10.1); Chloride, Blood 111 mmol/L (98-108); Creatinine, Blood 1.14 mg/dL (0.40-1.00); Globulin, Blood 3.8 g/dL (2.2-4.0); Glomerular Filtration Rate 50 (60-); Glucose, Blood 91 mg/dL (70-99); Potassium, Blood 3.6 mmol/L (3.5-5.5); Sodium, Blood 140 mmol/L (136-145); Total Protein, Blood 7.4 g/dL (6.4-8.2); Troponin I <0.015 ng/mL (0.000-0.040)
== END 2020-06-09 23:48 | disposition home or self-care (01) ==
LOC: ER 18:10
PROVIDERS: Emergency Medicine
DX: R06.00 Dyspnea, unspecified (principal); Z79.899 Other long term (current) drug therapy
CPT/HCPCS: 36415; 71045; 80053; 84484; 85025; 93005; 93010; 96374; 99285-25; J2405

== ENCOUNTER 2020-06-15 13:26 | Emergency (ER) | payer MEDICARE, OTHER ==
[~2020-06-15] VITALS: Ht 162.6 cm; Wt 81.7 kg
[2020-06-15 14:53] LABS: Source, Urine Clean Catch
[2020-06-15 14:56] LABS: Appearance, Urine Cloudy (Clear); Blood, Urine 2+ (Neg); Color, Urine Yellow (P-Yellow); Glucose Qualitative, Urine Neg (Neg); Ketones, Urine 2+ (Neg); Leukocyte Esterase, Urine 3+ (Neg); Nitrite, Urine Pos (Neg); Protein, Urine 2+ (Neg); Specific Gravity, Urine 1.025 (1.003-1.022); Urobilinogen, Urine 1+ (Normal)
[2020-06-15 15:04] LABS: Bilirubin, Urine 1+ (Neg)
[2020-06-15 15:05] LABS: Bacteria Many /hpf; Squamous Epithelial Cells Mod /hpf (Few); White Blood Cells, Urine TNTC /hpf (0-5)
[2020-06-15] MEDS ORDERED: Bactrim Ds Tab1 EACH PO (15:12)
[2020-06-15] MEDS ORDERED: ONDA4ODT MM (15:19)
== END 2020-06-15 15:26 | disposition home or self-care (01) ==
LOC: ER 13:26
PROVIDERS: Physician Assistant
DX: N39.0 Urinary tract infection, site not specified (principal); J44.9 Chronic obstructive pulmonary disease, unspecified; I10 Essential (primary) hypertension; F17.200 Nicotine dependence, unspecified, uncomplicated; Z88.6 Allergy status to analgesic agent; Z88.1 Allergy status to other antibiotic agents; Z88.0 Allergy status to penicillin; Z79.899 Other long term (current) drug therapy
CPT/HCPCS: 81001; 87077; 87086; 87186; 99284; A9270

== ENCOUNTER → 2020-09-06 | Outpatient (CLI) | payer MEDICARE, OTHER ==
[~2020-09-06] MED LIST changes: +ONDA4ODT MM
== END | disposition home or self-care (01) ==
LOC: LAB SHORT 16:03 → LAB 16:03
DX: N39.0 Urinary tract infection, site not specified (principal); R31.9 Hematuria, unspecified
CPT/HCPCS: 87077; 87086; 87186

== ENCOUNTER 2020-10-31 10:46 | Day surgery (SDC) | payer MEDICARE, OTHER ==
[~2020-10-31] VITALS: Ht 162.6 cm; Wt 90.0 kg
[2020-10-31 11:47] LABS: BASOPHILS ABSOLUTE AUTO 0.06 K/mm3 (0.00-0.23); BASOPHILS PERCENT AUTO 1 % (0-2); EOSINOPHILS ABSOLUTE AUTO 0.27 K/mm3 (0.00-0.68); EOSINOPHILS PERCENT AUTO 4 % (0-6); Hematocrit 38.8 % (33.0-51.0); Hemoglobin 12.5 g/dL (11.5-16.0); IMMATURE GRAN ABSOLUTE AUTO 0.02 K/mm3 (0.00-0.10); IMMATURE GRAN PERCENT AUTO 0 % (0-1); LYMPHOCYTES ABSOLUTE AUTO 1.44 K/mm3 (0.84-5.20); LYMPHOCYTES PERCENT AUTO 21 % (21-46); MONOCYTES ABSOLUTE AUTO 0.46 K/mm3 (0.16-1.47); MONOCYTES PERCENT AUTO 7 % (4-13); Mean Corpuscular HGB 27.7 pg (26.0-34.0); Mean Corpuscular HGB Conc 32.2 g/dL (31.5-36.5); Mean Corpuscular Volume 86 fL (80-100); Mean Platelet Volume 10.5 fL (9.1-12.4); NEUTROPHILS ABSOLUTE AUTO 4.73 K/mm3 (1.96-9.15); NEUTROPHILS PERCENT AUTO 68 % (41-73); Platelet Count 296 K/mm3 (150-400); RDW Standard Deviation 47.5 fL (35.1-46.3); Red Blood Cell Count 4.51 M/mm3 (3.80-5.20); White Blood Cell Count 6.98 K/mm3 (4.00-11.30)
[2020-10-31 11:58] LABS: Albumin, Blood 3.3 g/dL (3.4-5.0); Albumin/Globulin Ratio 0.8 (0.8-1.8); Bilirubin, Total 0.2 mg/dL (0.1-1.0); Bun/Creatinine Ratio 11.7 (12.0-20.0); Calcium, Blood 8.5 mg/dL (8.5-10.1); Creatinine, Blood 1.2 mg/dL (0.40-1.00); Potassium, Blood 3.7 mmol/L (3.5-5.5); Total Protein, Blood 7.3 g/dL (6.4-8.2)
[2020-10-31 11:59] LABS: International Normalized Ratio 0.95; Prothrombin Time Results 10.3 Sec (9.7-11.5)
--- NOTE | 2020-10-31 17:12 | NUR ---
DISCHARGE PT AMBULATED TO RESTROOM AND DRESSED SELF WITH NO COMPLICATIONS. PT DENIES ANY PAIN AT EITHER SITE. NO BLEEDING, OOZING OR HEMATOMA NOTED AT R FEM OR L PT SITE. PT STATES HER UNDERSTANDING OF DC AND SITE CARE INSTRUCTIONS AND DENIES ANY QUESTIONS OR CONCERNS UPON DC. IV DC WITH CATH INTACT. PT TAKEN TO EXIT VIA WHEELCHAIR WHERE FRIEND AWAITED.
== END 2020-10-31 17:15 | disposition home or self-care (01) ==
LOC: MHTC 10:46
PROVIDERS: Radiology Diagnostic Radiology
DX: I70.213 Atherosclerosis of native arteries of extremities with intermittent claudication, bilateral legs (principal); J43.9 Emphysema, unspecified; I10 Essential (primary) hypertension; M32.9 Systemic lupus erythematosus, unspecified; M06.9 Rheumatoid arthritis, unspecified; F17.210 Nicotine dependence, cigarettes, uncomplicated; F41.9 Anxiety disorder, unspecified; F32.9 Major depressive disorder, single episode, unspecified; Z88.8 Allergy status to other drugs, medicaments and biological substances; Z88.0 Allergy status to penicillin; Z79.01 Long term (current) use of anticoagulants
CPT/HCPCS: 37228; 75716; 75774; 76937; 80053; 85025; 85610; 99152; 99153; C1725; C1769; C1887; C1894; J2250; J3010; J7030; J7050; Q9967

== ENCOUNTER 2022-04-25 20:47 | Emergency (ER) | payer OTHER ==
[~2022-04-25] VITALS: Ht 162.6 cm; Wt 90.7 kg
[2022-04-25 22:20] LABS: Influenza A, PCR NEGATIVE (NEGATIVE); Influenza B, PCR NEGATIVE (NEGATIVE); Resp Syncytial Virus, PCR NEGATIVE (NEGATIVE); SARS-Cov-2 (COVID-19) PCR, MMC NEGATIVE (NEGATIVE)
[2022-04-26] MEDS ORDERED: DOXY100 PO (03:19)
[2022-04-26] MEDS ORDERED: PRED20 PO (03:19)
== END 2022-04-26 03:40 | disposition home or self-care (01) ==
LOC: ER 20:47
PROVIDERS: Physician Assistant
DX: J44.1 Chronic obstructive pulmonary disease with (acute) exacerbation (principal); B34.9 Viral infection, unspecified; I25.2 Old myocardial infarction; I10 Essential (primary) hypertension; F17.200 Nicotine dependence, unspecified, uncomplicated; Z79.899 Other long term (current) drug therapy; Z79.02 Long term (current) use of antithrombotics/antiplatelets; Z20.822 Contact with and (suspected) exposure to COVID-19
CPT/HCPCS: 0241U; 71046; 94644; 94645; 94664; A9270; J7512

== ENCOUNTER 2022-12-16 12:20 | Emergency (ER) | payer OTHER ==
[~2022-12-16] VITALS: Ht 162.6 cm; Wt 88.5 kg
[~2022-12-16 12:20] MED LIST changes: +DOXY100 PO; +PRED20 PO
[2022-12-16 14:12] LABS: BASOPHILS ABSOLUTE AUTO 0.06 K/mm3 (0.00-0.23); BASOPHILS PERCENT AUTO 1 % (0-2); EOSINOPHILS ABSOLUTE AUTO 0.17 K/mm3 (0.00-0.68); EOSINOPHILS PERCENT AUTO 2 % (0-6); Hematocrit 46.6 % (33.0-51.0); Hemoglobin 15.9 g/dL (11.5-16.0); IMMATURE GRAN ABSOLUTE AUTO 0.04 K/mm3 (0.00-0.10); IMMATURE GRAN PERCENT AUTO 0 % (0-1); LYMPHOCYTES ABSOLUTE AUTO 1.57 K/mm3 (0.84-5.20); LYMPHOCYTES PERCENT AUTO 15 % (21-46); MONOCYTES PERCENT AUTO 4 % (4-13); Mean Corpuscular HGB 29.4 pg (26.0-34.0); Mean Corpuscular HGB Conc 34.1 g/dL (31.5-36.5); Mean Corpuscular Volume 86 fL (80-100); Mean Platelet Volume 10.6 fL (9.1-12.4); NEUTROPHILS ABSOLUTE AUTO 8.02 K/mm3 (1.96-9.15); NEUTROPHILS PERCENT AUTO 78 % (41-73); Platelet Count 297 K/mm3 (150-400); RDW Coefficient Variation 13.2 % (11.7-14.2); Red Blood Cell Count 5.41 M/mm3 (3.80-5.20); White Blood Cell Count 10.26 K/mm3 (4.00-11.30)
[2022-12-16 14:37] LABS: Albumin, Blood 3.7 g/dL (3.4-5.0); Albumin/Globulin Ratio 0.9 (0.8-1.8); Bilirubin, Total 0.5 mg/dL (0.1-1.0); Bun/Creatinine Ratio 17.8 (12.0-20.0); Calcium, Blood 9.5 mg/dL (8.5-10.1); Creatinine, Blood 1.01 mg/dL (0.40-1.00); Globulin, Blood 4.3 g/dL (2.2-4.0); Potassium, Blood 4.4 mmol/L (3.5-5.5)
[2022-12-16 15:45] VITALS: BP 149/73
[2022-12-16] MEDS ORDERED: MECL25 PO (18:45)
== END 2022-12-16 18:52 | disposition home or self-care (01) ==
LOC: ER 12:20
PROVIDERS: Student in an Organized Health Care Education/Training Program
DX: R42 Dizziness and giddiness (principal); J44.9 Chronic obstructive pulmonary disease, unspecified; I10 Essential (primary) hypertension; I25.2 Old myocardial infarction; F17.210 Nicotine dependence, cigarettes, uncomplicated; Z88.8 Allergy status to other drugs, medicaments and biological substances; Z88.1 Allergy status to other antibiotic agents; Z88.0 Allergy status to penicillin; Z79.899 Other long term (current) drug therapy
CPT/HCPCS: 70450; 80053; 85025; 93005; 93010; 96374; 99284-25; A9270; J2765

== ENCOUNTER 2023-02-08 11:06 | Observation (INO) | payer OTHER ==
[~2023-02-08] VITALS: Ht 162.6 cm; Wt 90.7 kg
[~2023-02-08 11:06] MED LIST changes: +MECL25 PO
[2023-02-08 12:08] LABS: BASOPHILS ABSOLUTE AUTO 0.05 K/mm3 (0.00-0.23); BASOPHILS PERCENT AUTO 0 % (0-2); EOSINOPHILS ABSOLUTE AUTO 0.19 K/mm3 (0.00-0.68); EOSINOPHILS PERCENT AUTO 2 % (0-6); Hematocrit 40.4 % (33.0-51.0); Hemoglobin 13.5 g/dL (11.5-16.0); IMMATURE GRAN ABSOLUTE AUTO 0.04 K/mm3 (0.00-0.10); IMMATURE GRAN PERCENT AUTO 0 % (0-1); LYMPHOCYTES ABSOLUTE AUTO 2.03 K/mm3 (0.84-5.20); LYMPHOCYTES PERCENT AUTO 17 % (21-46); MONOCYTES ABSOLUTE AUTO 0.76 K/mm3 (0.16-1.47); MONOCYTES PERCENT AUTO 7 % (4-13); Mean Corpuscular HGB 29.9 pg (26.0-34.0); Mean Corpuscular HGB Conc 33.4 g/dL (31.5-36.5); Mean Corpuscular Volume 90 fL (80-100); Mean Platelet Volume 10.5 fL (9.1-12.4); NEUTROPHILS PERCENT AUTO 74 % (41-73); Platelet Count 280 K/mm3 (150-400); RDW Coefficient Variation 13.6 % (11.7-14.2); RDW Standard Deviation 44.5 fL (35.1-46.3); Red Blood Cell Count 4.51 M/mm3 (3.80-5.20); White Blood Cell Count 11.77 K/mm3 (4.00-11.30)
[2023-02-08 12:26] LABS: Albumin, Blood 3.1 g/dL (3.4-5.0); Albumin/Globulin Ratio 0.8 (0.8-1.8); Bilirubin, Total 0.4 mg/dL (0.1-1.0); Bun/Creatinine Ratio 15.1 (12.0-20.0); Calcium, Blood 8.4 mg/dL (8.5-10.1); Globulin, Blood 3.8 g/dL (2.2-4.0); Potassium, Blood 3.4 mmol/L (3.5-5.5); Total Protein, Blood 6.9 g/dL (6.4-8.2)
[2023-02-08 12:46] LABS: Influenza A, PCR NEGATIVE (NEGATIVE); Influenza B, PCR NEGATIVE (NEGATIVE); Resp Syncytial Virus, PCR NEGATIVE (NEGATIVE); SARS-Cov-2 (COVID-19) PCR, MMC NEGATIVE (NEGATIVE)
[2023-02-08] MEDS ORDERED: GABA300 PO (19:13)
[2023-02-08] MEDS ORDERED: OMEP20ER PO (19:15)
[2023-02-08] MEDS ORDERED: SUBOXONE 8 MG-1 EACH SL (19:16)
[2023-02-08 19:18] VITALS: BP 143/59
[2023-02-08] MEDS ORDERED: JARDIANCE10 MG PO (19:19)
[2023-02-08] MEDS ORDERED: LISI5 PO (19:23)
[2023-02-09 01:01] VITALS: BP 153/63
[2023-02-09 05:11] LABS: Hemoglobin 13.9 g/dL (11.5-16.0); Mean Corpuscular HGB 29.4 pg (26.0-34.0); Mean Corpuscular HGB Conc 33.1 g/dL (31.5-36.5); Mean Corpuscular Volume 89 fL (80-100); Mean Platelet Volume 10.6 fL (9.1-12.4); Platelet Count 285 K/mm3 (150-400); RDW Coefficient Variation 13.4 % (11.7-14.2); RDW Standard Deviation 43.9 fL (35.1-46.3); Red Blood Cell Count 4.73 M/mm3 (3.80-5.20); White Blood Cell Count 10.14 K/mm3 (4.00-11.30)
[2023-02-09 05:30] LABS: Bun/Creatinine Ratio 20.8 (12.0-20.0); Calcium, Blood 9.6 mg/dL (8.5-10.1); Creatinine, Blood 1.06 mg/dL (0.40-1.00); Potassium, Blood 4.2 mmol/L (3.5-5.5)
--- NOTE | 2023-02-09 06:13 | NUR ---
SHIFT SUMMARY 67 YR F ADMITTED ON 02/08/23 FOR COPD EXACERBATION. DNR. NO ACUTE CHANGES THIS SHIFT. PT STATES THAT SHE GETS SOB W/ ANY ACTIVITY AT ALL BUT OTHERWISE FEELS FINE. SHE STATES SHE IS BREATHING BETTER AFTER GETTING 2 DOSES OF IV STEROIDS. SHE IS A&O X 4 AND FULLY INDEPENDANT IN THE ROOM. SHE WILL LIKELY DISCHARGE TODAY.
[2023-02-09 07:26] VITALS: BP 156/58
[2023-02-09 15:31] VITALS: BP 103/82
[2023-02-09] MEDS ORDERED: Flonase 0.05% N16 GM (15:51)
[2023-02-09] MEDS ORDERED: AZIT500 PO (15:51)
[2023-02-09] MEDS ORDERED: GUAI600T33 PO (15:52)
[2023-02-09] MEDS ORDERED: IPRAT-ALBUT 0.5-3 ML INH (15:53)
[2023-02-09] MEDS ORDERED: PRED20 PO (15:55)
[2023-02-09] MEDS ORDERED: TRELEGY ELLIPT1 EAC1 PO (15:56)
--- NOTE | 2023-02-09 16:54 | NUR ---
DISCHARGE SUMMARY PT AxOx4. PLEASANT AND COOPERATIVE WITH CARE. PT RECEIVING IV STEROIDS THIS SHIFT. NEW ABX RX STARTED TODAY PRIOR TO DC. PT SEEING RESP THERAPY FOR BREATHING TREATMENTS. LS CLEAR IN UPPER LOBES, FINE WHEEZE/CRACKLES IN STU BASES. PT REPORTS SOB WITH ACTIVITY, BUT O2 SAT'S WNL. PT DC'ING HOME TODAY WITH FRIEND. PT WAS GIVEN DC INSTRUCTIONS INCLUDING DC MED LIST, FOLLOW UP APPT (AND NEED TO MAKE THESE APPTS) INCLUDING PCP AND BULK DRIVER AND PT EDUCATION. PT WAS INFORMED OF PULMONARY REHAB REFERRAL AND WAS NOTIFIED THAT THEY WILL CONTACT HER TO INITIATE. PT VERBALIZES UNDERSTANDING. DENIES FURTHER QUESTIONS AT THIS TIME. SAFELY ESCORTED OUT WITH THIS RN VIA WC.
== END 2023-02-09 16:34 | disposition home or self-care (01) ==
LOC: ER 11:06 → MEDS 11:08
PROVIDERS: Emergency Medicine; ADMIT Internal Medicine
DX: J44.1 Chronic obstructive pulmonary disease with (acute) exacerbation (principal); I11.0 Hypertensive heart disease with heart failure; I50.32 Chronic diastolic (congestive) heart failure; I25.2 Old myocardial infarction; F17.210 Nicotine dependence, cigarettes, uncomplicated; Z88.0 Allergy status to penicillin; Z88.1 Allergy status to other antibiotic agents; Z79.82 Long term (current) use of aspirin; Z79.899 Other long term (current) drug therapy; Z20.822 Contact with and (suspected) exposure to COVID-19
CPT/HCPCS: 0241U; 36415; 71045; 80048; 80053; 83880; 84484; 85025; 85027; 93005; 93010; 94640; 94644; 94664; 94760; 96374; 96375; 96376; 99285-25; A9270; G0378; J1940; J2930